=== PATIENT | female | born 1945 | race Caucasian/White ===

== ENCOUNTER 2019-11-11 06:24 | Day surgery (SDC) | payer MEDICARE ==
[2019-11-11] MEDS ORDERED: Sodium Chloride 0.9% 10 ML Syringe FLUSH PRN (07:00)
--- NOTE | 2019-11-11 10:48 | OR ---
DATE OF PROCEDURE: 11/11/2019 SURGEON: Greer Jade MD POSTOPERATIVE CARE: Postoperative care will be provided mainly at the [address] [place] [address] [facility] in conjunction with [facility]. PREOPERATIVE DIAGNOSIS: Cataract, right eye. POSTOPERATIVE DIAGNOSIS: Cataract, right eye. PROCEDURE: Phacoemulsification with intraocular lens placement, right eye. ANESTHESIA: Topical and intracameral. ESTIMATED BLOOD LOSS: Minimal. COMPLICATIONS: None. PATHOLOGY SPECIMENS: None. SURGICAL FINDINGS: None. INDICATION FOR PROCEDURE: The patient is a 73-year-old female with history of a visually significant cataract in the right eye, which interfered with activities of daily living. This consisted of a nuclear sclerosis cataract. Following careful discussion of the risks, benefits and alternatives to cataract extraction with intraocular lens placement including blindness and , the patient elected to proceed, and informed, written consent was obtained prior to the procedure. DESCRIPTION OF THE PROCEDURE: The patient was previously identified, and a dustin placed above the right eye. All sources, including the patient, indicated that the right eye was the correct eye. The patient was subsequently taken to the operating room where standard monitors were applied. The patient was then prepped and draped in the usual sterile fashion for ophthalmic surgery. Attention was first directed at the 12 o'clock position where a paracentesis port was fashioned. Shugar solution followed by Viscoat was instilled into the eye. Attention was then directed to the 8:30 position where a triplanar incision was made in a near-clear manner using a keratome. A continuous capsulorrhexis was then made using a combination of the cystotome and Utrata forceps. Hydrodissection was achieved using a balanced salt solution, and the lens rotated nicely. Phacoemulsification was then done using a modified [id number] technique without complication. Phaco time was 17.01 CDE. The remaining cortex was removed using the irrigation/aspiration handpiece. Provisc was then instilled into the eye. A Technis lens, model PCB00, at 22.0 diopters was then placed in the capsular bag using an [place] injector. The remaining viscoelastic was removed using the irrigation/aspiration forceps. All wounds were then checked and found to be watertight. The lid speculum and drapes were removed. Maxitrol ointment was placed in the patient's right eye, and the eye was shielded. The patient tolerated the procedure well. The patient was instructed to follow up tomorrow. All needle and sponge counts were correct at the end of the procedure. Greer Jade MD /[id number]
== END 2019-11-11 08:49 | disposition home or self-care (01) ==
LOC: JP.SDS 06:24
PROVIDERS: ATTEND Ophthalmology
DX: H25.11 Age-related nuclear cataract, right eye (principal)
CPT/HCPCS: V2632

== ENCOUNTER 2019-11-25 06:33 | Day surgery (SDC) | payer MEDICARE ==
[2019-11-25] MEDS ORDERED: Sodium Chloride 0.9% 10 ML Syringe FLUSH PRN (07:00)
--- NOTE | 2019-11-25 10:38 | OR ---
DATE OF PROCEDURE: 11/25/2019 SURGEON: Greer Jade MD POSTOPERATIVE CARE: Postoperative care will be provided mainly at the [address] [place] [address] [facility] in conjunction with [facility]. PREOPERATIVE DIAGNOSIS: Cataract, left eye. POSTOPERATIVE DIAGNOSIS: Cataract, left eye. PROCEDURE: Phacoemulsification with intraocular lens placement, left eye. ANESTHESIA: Topical and intracameral. ESTIMATED BLOOD LOSS: Minimal. COMPLICATIONS: None. PATHOLOGY SPECIMENS: None. SURGICAL FINDINGS: None. INDICATION FOR PROCEDURE: The patient is a 74-year-old female with history of a visually significant cataract in the left eye, which interfered with activities of daily living. This consisted of a nuclear sclerosis cataract. Following careful discussion of the risks, benefits and alternatives to cataract extraction with intraocular lens placement including blindness and , the patient elected to proceed, and informed, written consent was obtained prior to the procedure. DESCRIPTION OF THE PROCEDURE: The patient was previously identified, and a dustin placed above the left eye. All sources, including the patient, indicated that the left eye was the correct eye. The patient was subsequently taken to the operating room where standard monitors were applied. The patient was then prepped and draped in the usual sterile fashion for ophthalmic surgery. Attention was first directed at the 12 o'clock position where a paracentesis port was fashioned. Shugar solution followed by Viscoat was instilled into the eye. Attention was then directed to the 8:30 position where a triplanar incision was made in a near-clear manner using a keratome. A continuous capsulorrhexis was then made using a combination of the cystotome and Utrata forceps. Hydrodissection was achieved using a balanced salt solution, and the lens rotated nicely. Phacoemulsification was then done using a modified [id number]-[id number] technique without complication. Phaco time was 10.38 CDE. The remaining cortex was removed using the irrigation/aspiration handpiece. Provisc was then instilled into the eye. A Technis lens, model PCB00, at 22.5 diopters was then placed in the capsular bag using an [place] injector. The remaining viscoelastic was removed using the irrigation/aspiration forceps. All wounds were then checked and found to be watertight. The lid speculum and drapes were removed. Maxitrol ointment was placed in the patient's left eye, and the eye was shielded. The patient tolerated the procedure well. The patient was instructed to follow up tomorrow. All needle and sponge counts were correct at the end of the procedure. Greer Jade MD /[id number]
== END 2019-11-25 08:30 | disposition home or self-care (01) ==
LOC: JP.SDS 06:33
PROVIDERS: ATTEND Ophthalmology
DX: E11.36 Type 2 diabetes mellitus with diabetic cataract (principal); I10 Essential (primary) hypertension; E66.9 Obesity, unspecified; Z88.8 Allergy status to other drugs, medicaments and biological substances; Z68.33 Body mass index [BMI] 33.0-33.9, adult
CPT/HCPCS: V2632

== ENCOUNTER 2021-01-24 21:41 | Inpatient (IN) | payer MEDICARE ==
[2021-01-24] MEDS ORDERED: Sodium Chloride 0.9% 1,000 ML IV SCH (22:15)
[2021-01-24] MEDS ORDERED: Sodium Chloride 0.9% 10 ML Syringe FLUSH PRN (22:15)
[2021-01-24] MEDS ORDERED: Ondansetron 4 MG/2 ML SDV IVPUSH ONE (22:16)
--- NOTE | 2021-01-24 22:27 | EDM.PDOC ---
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 She states that has been functioning fine pain started around the ileostomy site early this morning has progressively gotten worse. Does feel nauseated no shortness of breath chest pain no fevers Abdomen Pain Score (Numeric/FACES): 6 - Related Data Allergies Allergy/AdvReac Type Severity Reaction Status Date / Time atorvastatin Allergy Muscle Verified 01/24/21 21:50 Aches meperidine [From Demerol] Allergy Hives Verified 01/24/21 21:50 Sqbxmvg-TVV-FpI Reductase Allergy Other Verified 01/24/21 21:50 Inhibitor [Iwyqtzg-Ing-Buj Reductase Inhibitor] Home Meds: Home Meds Aspirin [Halfprin] 81 mg PO DAILY 01/08/17 [History] Levothyroxine Sodium [Synthroid] 112 mcg PO DAILY 01/08/17 [History] Multivitamin [Flintstones] 2 each PO DAILY 01/08/17 [History] Potassium Citrate/Citric Acid [Cytra-K] 15 ml PO TID 01/08/17 [History] amLODIPine Besylate [Norvasc] 2.5 mg PO DAILY 01/08/17 [History] metFORMIN [Glucophage] 500 mg PO BID 01/08/17 [History] Bismuth Subsalicylate [Pepto Bismol] 262 mg PO ASDIRECTED PRN 11/08/19 [History] Cholecalciferol (Vitamin D3) [Vitamin D3] 2,000 units PO DAILY 11/08/19 [History] Tamsulosin [Tamsulosin 24 Hr] 0.4 mg PO DAILY 11/08/19 [History] allopurinoL [Zyloprim] 100 mg PO DAILY 11/08/19 [History] Oxybutynin [Oxybutynin ER] 5 mg PO DAILY 11/25/19 [History] Sulfamethoxazole/Trimethoprim [Sulfamethoxazole-Tmp Ds Tablet] 1 each PO A SDIRECTED 11/25/19 [History] Past Medical History HEENT History: Reports: Allergic Rhinitis, Impaired Vision Cardiovascular History: Reports: Hypertension Gastrointestinal History: Reports: Bowel Obstruction, Chronic Diarrhea, Colon Polyp, Other (See Below) Other Gastrointestinal History: Ulcerative colitis Genitourinary History: Reports: Renal Calculus FIRST DYER History: Reports: Musculoskeletal History: Reports: Neck Pain, Chronic, Osteoarthritis Endocrine/Metabolic History: Reports: Diabetes, Type II, Hypothyroidism, Obesity/BMI 30+ Oncologic (Cancer) History: Reports: Colon, Other (See Below) Other Oncologic History: Rectal Dermatologic History: Reports: Psoriasis, Other (See Below) Other Dermatologic History: Art Cell carcinoma - Infectious Disease History Infectious Disease History: Reports: Chicken Pox, Measles, Mumps - Past Surgical History HEENT Surgical History: Reports: Tonsillectomy Cardiovascular Surgical History: Reports: None GI Surgical History: Reports: Appendectomy, Colonoscopy, EGD, Other (See Below) Other GI Surgeries/Procedures: Colon resection - iliostomy Female Surgical History: Reports: Breast Biopsy, Kidney stone extraction, Other (See Below) Other Female Surgeries/Procedures: currently has kidney stent in place Endocrine Surgical History: Reports: Other (See Below) Other Endocrine Surgeries/Procedures: Radioactive thyroid treatment Musculoskeletal Surgical History: Reports: None Oncologic Surgical History: Reports: None Dermatological Surgical History: Reports: None Social & Family History - Family History Family Medical History: No Pertinent Family History - Caffeine Use Caffeine Use: Reports: None ED ROS GENERAL - Review of Systems Review Of Systems: See Below Constitutional: Reports: No Symptoms Respiratory: Reports: No Symptoms Cardiovascular: Reports: No Symptoms GI/Abdominal: Reports: Abdominal Pain, Nausea. Denies: Vomiting ED EXAM, GI/ABD - Physical Exam Exam: See Below Exam Limited By: No Limitations General Appearance: Alert, WD/WN, No Apparent Distress Respiratory/Chest: No Respiratory Distress, Lungs Clear, Normal Breath Sounds, No Accessory Muscle Use, Chest Non-Tender Cardiovascular: Regular Rate, Rhythm, No Murmur GI/Abdominal Exam: Soft, Tender (Tender just above the ileostomy site), Abnormal Bowel Sounds (Hyperactive) Course - Vital Signs Last Recorded V/S: Last Vital Signs Temp 97.8 F 01/25/21 06:27 Pulse 97 01/25/21 08:00 Resp 16 01/25/21 08:00 BP 153/75 H 01/25/21 08:00 Pulse Ox 96 01/25/21 08:00 - Orders/Labs/Meds Orders: Active Orders 24 hr Category Date Time Status Peripheral IV Care [RC] . DIRECTED Care 01/24/21 22:15 Active Chest 1V Frontal [CR] Stat Exams 01/25/21 00:05 Taken CBC WITH AUTO DIFF [HEME] Stat Lab 01/25/21 08:55 Ordered COMPREHENSIVE METABOLIC PN,CMP [CHEM] Stat Lab 01/25/21 08:55 Ordered LACTIC ACID [CHEM] Stat Lab 01/25/21 08:55 Ordered Iopamidol [Isovue-300 (61%)] Med 01/24/21 22:45 Active 100 ml IV . DIRECTED Sodium Chloride 0.9% [Normal Saline] 1,000 ml Med 01/24/21 22:15 Active IV ASDIRECTED Sodium Chloride 0.9% [Normal Saline] 1,000 ml Med 01/25/21 09:00 Ordered IV ASDIRECTED Sodium Chloride 0.9% [Normal Saline] 80 ml Med 01/24/21 22:45 Active IV ASDIRECTED Sodium Chloride 0.9% [Saline Flush] Med 01/24/21 22:15 Active 10 ml FLUSH ASDIRECTED PRN Nasogastric Orogastric Tube Insertion [OM.PC] Routine Oth 01/24/21 23:47 Ordered Peripheral IV Insertion Adult [OM.PC] Urgent Oth 01/24/21 22:15 Ordered Medication Orders Sodium Chloride (Normal Saline) 1,000 mls @ 250 mls/hr IV ASDIRECTED ALLYSON Last Admin: 01/24/21 22:26 Dose: 250 mls/hr Documented by: LORNE Sodium Chloride (Normal Saline) 80 mls @ 3 mls/sec IV ASDIRECTED ALLYSON Last Admin: 01/24/21 22:54 Dose: 3 mls/sec Documented by: [email or web address] Sodium Chloride (Normal Saline) 1,000 mls @ 125 mls/hr IV ASDIRECTED [facility] Iopamidol (Iopamidol 612 Mg/Ml 100 Ml Bottle) 100 ml IV . DIRECTED [facility] Last Admin: 01/24/21 22:54 Dose: 100 ml Documented by: MYKLALY Sodium Chloride (Sodium Chloride 0.9% 10 Ml Syringe) 10 ml FLUSH ASDIRECTED PRN PRN Reason: Keep Vein Open Last Admin: 01/24/21 22:54 Dose: 10 ml Documented by: [email or web address] Labs: Laboratory Tests 01/24/21 01/24/21 01/24/21 Range/Units 22:07 22:07 22:07 WBC 11.2 H (4.5-11.0) K/uL RBC 4.22 (3.30-5.50) M/uL Hgb 11.0 L (12.0-15.0) g/dL Hct 35.7 L (36.0-48.0) % MCV 85 (80-98) fL MCH 26 L (27-31) pg MCHC 31 L (32-36) % Plt Count 309 (150-400) K/uL Neut % (Auto) 81.6 H (36-66) % Lymph % (Auto) 11.7 L (24-44) % Finney % (Auto) 5.8 (2-6) % Eos % (Auto) 0.7 L (2-4) % Baso % (Auto) 0.2 (0-1) % Sodium 139 L (140-148) mmol/L Potassium 4.1 (3.6-5.2) mmol/L Chloride 102 (100-108) mmol/L Carbon Dioxide 26 (21-32) mmol/L Anion Gap 15.1 H (5.0-14.0) mmol/L BUN 21 H (7-18) mg/dL Creatinine 0.9 (0.6-1.0) mg/dL Est Cr Clr Drug Dosing 43.30 mL/min Estimated GFR (MDRD) > 60 (>60) Glucose 161 H (74-106) mg/dL Lactic Acid 3.0 H (0.4-2.0) mmol/L Calcium 10.0 (8.5-10.1) mg/dL Total Bilirubin 0.6 (0.2-1.0) mg/dL AST 18 (15-37) U/L ALT 26 (12-78) U/L Alkaline Phosphatase 87 (46-116) U/L Total Protein 7.5 (6.4-8.2) g/dL Albumin 4.0 (3.4-5.0) g/dL Globulin 3.5 (2.3-3.5) g/dL Albumin/Globulin Ratio 1.1 L (1.2-2.2) Lipase 65 L (73-393) U/L SARS CoV-2 RNA Rapid DAVE 01/24/21 Range/Units 23:56 WBC (4.5-11.0) K/uL RBC (3.30-5.50) M/uL Hgb (12.0-15.0) g/dL Hct (36.0-48.0) % MCV (80-98) fL MCH (27-31) pg MCHC (32-36) % Plt Count (150-400) K/uL Neut % (Auto) (36-66) % Lymph % (Auto) (24-44) % Finney % (Auto) (2-6) % Eos % (Auto) (2-4) % Baso % (Auto) (0-1) % Sodium (140-148) mmol/L Potassium (3.6-5.2) mmol/L Chloride (100-108) mmol/L Carbon Dioxide (21-32) mmol/L Anion Gap (5.0-14.0) mmol/L BUN (7-18) mg/dL Creatinine (0.6-1.0) mg/dL Est Cr Clr Drug Dosing mL/min Estimated GFR (MDRD) (>60) Glucose (74-106) mg/dL Lactic Acid (0.4-2.0) mmol/L Calcium (8.5-10.1) mg/dL Total Bilirubin (0.2-1.0) mg/dL AST (15-37) U/L ALT (12-78) U/L Alkaline Phosphatase (46-116) U/L Total Protein (6.4-8.2) g/dL Albumin (3.4-5.0) g/dL Globulin (2.3-3.5) g/dL Albumin/Globulin Ratio (1.2-2.2) Lipase (73-393) U/L SARS CoV-2 RNA Rapid DAVE Negative Meds: Medications Generic Name Dose Route Start Last Admin Trade Name Freq PRN Reason Stop Dose Admin Sodium Chloride 1,000 mls @ 250 mls/hr 01/24/21 22:15 01/24/21 22:26 Normal Saline IV 250 mls/hr ASDIRECTED ALLYSON Administration Sodium Chloride 80 mls @ 3 mls/sec 01/24/21 22:45 01/24/21 22:54 Normal Saline IV 3 mls/sec ASDIRECTED ALLYSON Administration Sodium Chloride 1,000 mls @ 125 mls/hr 01/25/21 09:00 Normal Saline IV ASDIRECTED [facility]ON Iopamidol 100 ml 01/24/21 22:45 01/24/21 22:54 Iopamidol 612 Mg/Ml 100 Ml Bottle IV 100 ml . DIRECTED ALLYSON Administration Sodium Chloride 10 ml 01/24/21 22:15 01/24/21 22:54 Sodium Chloride 0.9% 10 Ml Syringe FLUSH 10 ml ASDIRECTED PRN Administration Keep Vein Open Discontinued Medications Generic Name Dose Route Start Last Admin Trade Name Freq PRN Reason Stop Dose Admin Fentanyl 50 mcg 01/24/21 23:54 01/25/21 00:10 Fentanyl 100 Mcg/2 Ml Sdv IVPUSH 01/24/21 23:55 50 mcg ONETIME ONE Administration Lorazepam 0.5 mg 01/24/21 23:54 01/25/21 06:53 Lorazepam 2 Mg/Ml Sdv IVPUSH 01/24/21 23:55 Not Given ONETIME ONE Ondansetron HCl 4 mg 01/24/21 22:16 01/24/21 22:25 Ondansetron 4 Mg/2 Ml Sdv IVPUSH 01/24/21 22:17 4 mg ONETIME ONE Administration Departure - Departure Time of Disposition: 08:57 Disposition: Admitted As Inpatient 64 Condition: Fair Clinical Impression: Small bowel obstruction - Discharge Information Referrals: Gabriel Hardin MD [Primary Care Provider] - Forms: ED Department Discharge Sepsis Event Note (ED) - Evaluation Sepsis Screening Result: No Definite Risk - Focused Exam Vital Signs: Vital Signs Temp Pulse Resp BP Pulse Ox 01/25/21 08:00 97 16 153/75 H 96 01/25/21 06:27 97.8 F 100 16 133/57 L 96 01/24/21 23:58 93 16 153/81 H 99 01/24/21 23:17 92 16 133/85 97 01/24/21 21:49 96 18 172/83 H 99 - My Orders Last 24 Hours: My Active Orders 01/24/21 22:15 Peripheral IV Care [RC] . DIRECTED Sodium Chloride 0.9% [Normal Saline] 1,000 ml IV ASDIRECTED Sodium Chloride 0.9% [Saline Flush] 10 ml FLUSH ASDIRECTED PRN Peripheral IV Insertion Adult [OM.PC] Urgent 01/24/21 22:45 Iopamidol [Isovue-300 (61%)] 100 ml IV . DIRECTED Sodium Chloride 0.9% [Normal Saline] 80 ml IV ASDIRECTED 01/24/21 23:47 Nasogastric Orogastric Tube Insertion [OM.PC] Routine 01/25/21 00:05 Chest 1V Frontal [CR] Stat 01/25/21 08:55 CBC WITH AUTO DIFF [HEME] Stat COMPREHENSIVE METABOLIC PN,CMP [CHEM] Stat LACTIC ACID [CHEM] Stat 01/25/21 09:00 Sodium Chloride 0.9% [Normal Saline] 1,000 ml IV ASDIRECTED - Assessment/Plan Last 24 Hours: My Active Orders 01/24/21 22:15 Peripheral IV Care [RC] . DIRECTED Sodium Chloride 0.9% [Normal Saline] 1,000 ml IV ASDIRECTED Sodium Chloride 0.9% [Saline Flush] 10 ml FLUSH ASDIRECTED PRN Peripheral IV Insertion Adult [OM.PC] Urgent 01/24/21 22:45 Iopamidol [Isovue-300 (61%)] 100 ml IV . DIRECTED Sodium Chloride 0.9% [Normal Saline] 80 ml IV ASDIRECTED 01/24/21 23:47 Nasogastric Orogastric Tube Insertion [OM.PC] Routine 01/25/21 00:05 Chest 1V Frontal [CR] Stat 01/25/21 08:55 CBC WITH AUTO DIFF [HEME] Stat COMPREHENSIVE METABOLIC PN,CMP [CHEM] Stat LACTIC ACID [CHEM] Stat 01/25/21 09:00 Sodium Chloride 0.9% [Normal Saline] 1,000 ml IV ASDIRECTED Plan: assesment Small bowel obstruction Plan We did try transfer last night unfortunately we were unsuccessful due to bed shortage is in the area some bed openings have become available this afternoon call discussed case hospitalist on-call at 9 AM kindly agreed to come evaluate patient emergency department for admission.
[2021-01-24] MEDS ORDERED: Sodium Chloride 0.9% 80 ML IV SCH (22:45)
[2021-01-24] MEDS ORDERED: Iopamidol 612 MG/ML 100 ML Bottle IV SCH (22:45)
--- NOTE | 2021-01-24 23:43 | CRLCT ---
For Patients: As a result of the Century Cures Act, medical imaging exams and procedure reports are released immediately into your electronic medical record. You may view this report before your referring provider. If you have questions, please contact your health care provider. INDICATION: Pain around ileostomy site. TECHNIQUE: CT abdomen and pelvis acquired with 100 mL Isovue-300 contrast. COMPARISON: CT abdomen/pelvis dated 09/08/2019. FINDINGS: Lower chest: Bibasilar atelectasis. No focal consolidation. Liver: No suspicious focal hepatic lesion. Gallbladder and bile ducts: Unremarkable. Pancreas: Diffuse atrophy. Spleen: Unremarkable. Adrenal glands: Adreniform thickening of the bilateral adrenal glands. Kidneys: No hydronephrosis bilaterally. Asymmetric atrophy of the left kidney. Several subcentimeter nonobstructing calculi in the kidneys bilaterally, overall stone burden is increased in the right kidney since prior study. Too small to characterize hypodense bilateral renal lesions. Retroperitoneum: No lymphadenopathy. Bowel and mesentery: There appear to be postsurgical changes following total colectomy with blind ending rectal stump, and right lower quadrant end ileostomy. There is a large parastomal hernia, which results in small-bowel obstruction (transition point is at the neck of the hernia). Bladder: Unremarkable for degree of distension. Reproductive organs: Multiple calcified uterine fibroids. Pelvic lymph nodes: No lymphadenopathy. Vessels: Atherosclerotic calcifications. Abdominal wall: Parastomal hernia as above. Bones: Multilevel degenerative changes of the spine. No suspicious/aggressive focal osseous lesion. Grade 1 anterolisthesis of L4 on L5, unchanged. IMPRESSION: 1. 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 2. Numerous bilateral nonobstructing subcentimeter renal calculi. Overall right renal stone burden has increased since prior study. 3. Additional incidental findings as above. Please note that all CT scans at this facility use dose modulation, iterative reconstruction, and/or weight-based dosing when appropriate to reduce radiation dose to as low as reasonably achievable. Dictated by Sylvester Oneal MD @ 01/24/2021 11:42:16 PM (Electronically Signed)
[2021-01-24] MEDS ORDERED: fentaNYL 100 MCG/2 ML SDV IVPUSH ONE (23:54)
[2021-01-24] MEDS ORDERED: LORazepam 2 MG/ML SDV IVPUSH ONE (23:54)
[2021-01-25] MEDS ORDERED: Sodium Chloride 0.9% 1,000 ML IV SCH ×2 (09:00→14:29)
--- NOTE | 2021-01-25 09:33 | CR ---
CHEST: Portable 01/25/2021 at 12:35 AM CLINICAL HISTORY:NG tube placement COMPARISON:None FINDINGS: NG tube is been placed. Tip is in the fundus of the stomach. Side-port is at the GE junction The heart size, pulmonary vascularity and hilar structures are normal. No infiltrate effusion or pneumothorax is seen. IMPRESSION: No acute cardiopulmonary process. NG tube as above
--- NOTE | 2021-01-25 13:58 | PCM.HP.2 ---
H&P History of Present Illness - General Date of Service: 01/25/21 Admit Problem/Dx: Admission Diagnosis/Problem Admission Diagnosis/Problem Small bowel obstruction Source of Information: Patient, Family, Provider, RN Notes Reviewed History Limitations: Reports: No Limitations - History of Present Illness Initial Comments - Free Text/Narative: Ms. Rodriguez is a 75-year-old woman who was admitted through the emergency department with abdominal pain, nausea, and vomiting, secondary to small bowel obstruction. She does have a prior history of abdominal surgery, status post subtotal colectomy done for ulcerative colitis. She has an ileostomy which until yesterday had been functioning very well. During the day yesterday noted marked decrease in output into her ostomy bag with developing cramping abdominal pain, nausea, and vomiting. She presented to the emergency department in the evening, CT scan of the abdomen was obtained and showed evidence of a peristomal hernia with incarcerated small bowel. There were no beds available in the hospital so she was boarded in the emergency department overnight. NG tube was placed and she was relatively comfortable throughout the night. Just prior to admission she noted marked improvement in ostomy output and total resolution of symptoms. Abdomen Pain Score (Numeric/FACES): 6 - Related Data Allergies/Adverse Reactions: Allergies Allergy/AdvReac Type Severity Reaction Status Date / Time atorvastatin Allergy Muscle Verified 01/24/21 21:50 Aches meperidine [From Demerol] Allergy Hives Verified 01/24/21 21:50 Fxbgvyx-BXN-UyN Reductase Allergy Other Verified 01/24/21 21:50 Inhibitor [Euqdnai-Lsn-Vpx Reductase Inhibitor] Home Medications: Home Meds Aspirin [Halfprin] 81 mg PO DAILY 01/08/17 [History] Levothyroxine Sodium [Synthroid] 112 mcg PO DAILY 01/08/17 [History] Multivitamin [Flintstones] 2 each PO DAILY 01/08/17 [History] Potassium Citrate/Citric Acid [Cytra-K] 15 ml PO TID 01/08/17 [History] amLODIPine Besylate [Norvasc] 2.5 mg PO DAILY 01/08/17 [History] metFORMIN [Glucophage] 500 mg PO BID 01/08/17 [History] Bismuth Subsalicylate [Pepto Bismol] 262 mg PO ASDIRECTED PRN 11/08/19 [History] Cholecalciferol (Vitamin D3) [Vitamin D3] 2,000 units PO DAILY 11/08/19 [History] allopurinoL [Zyloprim] 100 mg PO DAILY 11/08/19 [History] Sulfamethoxazole/Trimethoprim [Sulfamethoxazole-Tmp Ds Tablet] 1 each PO ASDIRECTED 11/25/19 [History] Past Medical History HEENT History: Reports: Allergic Rhinitis, Impaired Vision Cardiovascular History: Reports: Hypertension Gastrointestinal History: Reports: Bowel Obstruction, Chronic Diarrhea, Colon Polyp, Other (See Below) Other Gastrointestinal History: Ulcerative colitis Genitourinary History: Reports: Renal Calculus [employer] History: Reports: Musculoskeletal History: Reports: Neck Pain, Chronic, Osteoarthritis Endocrine/Metabolic History: Reports: Diabetes, Type II, Hypothyroidism, Obesity /BMI 30+ Oncologic (Cancer) History: Reports: Colon, Other (See Below) Other Oncologic History: Rectal Dermatologic History: Reports: Psoriasis, Other (See Below) Other Dermatologic History: Art Cell carcinoma - Infectious Disease History Infectious Disease History: Reports: Chicken Pox, Measles, Mumps - Past Surgical History HEENT Surgical History: Reports: Tonsillectomy Cardiovascular Surgical History: Reports: None GI Surgical History: Reports: Appendectomy, Colonoscopy, EGD, Other (See Below) Other GI Surgeries/Procedures: Colon resection - iliostomy Female Surgical History: Reports: Breast Biopsy, Kidney stone extraction, Other (See Below) Other Female Surgeries/Procedures: currently has kidney stent in place Endocrine Surgical History: Reports: Other (See Below) Other Endocrine Surgeries/Procedures: Radioactive thyroid treatment Musculoskeletal Surgical History: Reports: None Oncologic Surgical History: Reports: None Dermatological Surgical History: Reports: None Social & Family History - Family History Family Medical History: No Pertinent Family History - Tobacco Use Tobacco Use Status *Q: Never Tobacco User - Caffeine Use Caffeine Use: Reports: Coffee - Recreational Drug Use Recreational Drug Use: No H&P Review of Systems - Review of Systems: Review Of Systems: See Below General: Reports: Malaise, Weakness, Fatigue. Denies: Fever, Chills HEENT: Reports: No Symptoms Pulmonary: Reports: No Symptoms Cardiovascular: Reports: No Symptoms Gastrointestinal: Reports: Abdominal Pain, Distension, Nausea, Vomiting. Denies: Difficulty Swallowing, Hematemesis, Hematochezia, Melena, Mucous in Stool Genitourinary: Reports: No Symptoms Musculoskeletal: Reports: No Symptoms Skin: Reports: No Symptoms Psychiatric: Reports: No Symptoms Neurological: Reports: No Symptoms Hematologic/Lymphatic: Reports: No Symptoms Immunologic: Reports: No Symptoms Exam - Exam Exam: See Below - Vital Signs Vital Signs: Last Vital Signs Temp 97.8 F 01/25/21 06:27 Pulse 89 01/25/21 12:05 Resp 16 01/25/21 12:05 BP 141/70 H 01/25/21 12:05 Pulse Ox 98 01/25/21 12:05 Weight: 180 lb - Exam Quality Assessment: DVT Prophylaxis General: Alert, Oriented, Cooperative HEENT: Conjunctiva Clear, Hearing Intact, Mucosa Moist & [place], Normal Nasal Septum, Posterior Pharynx Clear, Pupils Equal Neck: Supple, Trachea Midline, +2 Carotid Pulse wo Bruit Lungs: Clear to Auscultation, Normal Respiratory Effort Cardiovascular: Regular Rate, Regular Rhythm, Normal S1, Normal S2. No: Systolic Murmur, Diastolic Murmur GI/Abdominal Exam: Soft, Non-Tender, No Organomegaly, No Distention Back Exam: Normal Inspection, Full Range of Motion Extremities: Non-Tender, No Pedal Edema Skin: Warm, Dry, Intact Neurological: Cranial Nerves Intact, Strength Equal Bilateral, Normal Speech, Normal Tone, Sensation Intact. No: Focal Deficit Neuro Extensive - Mental Status: Alert, Oriented x3, Normal Mood/Affect, Normal Cognition, Memory Intact - Patient Data Lab Results Last 24 hrs: Laboratory Results - last 24 hr 01/24/21 01/24/21 01/24/21 Range/Units 22:07 22:07 22:07 WBC 11.2 H (4.5-11.0) K/uL RBC 4.22 (3.30-5.50) M/uL Hgb 11.0 L (12.0-15.0) g/dL Hct 35.7 L (36.0-48.0) % MCV 85 (80-98) fL MCH 26 L (27-31) pg MCHC 31 L (32-36) % Plt Count 309 (150-400) K/uL Neut % (Auto) 81.6 H (36-66) % Lymph % (Auto) 11.7 L (24-44) % Josephine % (Auto) 5.8 (2-6) % Eos % (Auto) 0.7 L (2-4) % Baso % (Auto) 0.2 (0-1) % Sodium 139 L (140-148) mmol/L Potassium 4.1 (3.6-5.2) mmol/L Chloride 102 (100-108) mmol/L Carbon Dioxide 26 (21-32) mmol/L Anion Gap 15.1 H (5.0-14.0) mmol/L BUN 21 H (7-18) mg/dL Creatinine 0.9 (0.6-1.0) mg/dL Est Cr Clr Drug Dosing 43.30 mL/min Estimated GFR (MDRD) > 60 (>60) Glucose 161 H (74-106) mg/dL Lactic Acid 3.0 H (0.4-2.0) mmol/L Calcium 10.0 (8.5-10.1) mg/dL Total Bilirubin 0.6 (0.2-1.0) mg/dL AST 18 (15-37) U/L ALT 26 (12-78) U/L Alkaline Phosphatase 87 (46-116) U/L Total Protein 7.5 (6.4-8.2) g/dL Albumin 4.0 (3.4-5.0) g/dL Globulin 3.5 (2.3-3.5) g/dL Albumin/Globulin Ratio 1.1 L (1.2-2.2) Lipase 65 L (73-393) U/L SARS CoV-2 RNA Rapid DAVE 01/24/21 01/25/21 01/25/21 Range/Units 23:56 09:05 09:05 WBC 9.8 (4.5-11.0) K/uL RBC 4.04 (3.30-5.50) M/uL Hgb 10.7 L (12.0-15.0) g/dL Hct 34.1 L (36.0-48.0) % MCV 84 (80-98) fL MCH 27 (27-31) pg MCHC 31 L (32-36) % Plt Count 295 (150-400) K/uL Neut % (Auto) 74.3 H (36-66) % Lymph % (Auto) 16.0 L (24-44) % Josephine % (Auto) 8.8 H (2-6) % Eos % (Auto) 0.7 L (2-4) % Baso % (Auto) 0.2 (0-1) % Sodium 140 (140-148) mmol/L Potassium 4.6 (3.6-5.2) mmol/L Chloride 104 (100-108) mmol/L Carbon Dioxide 29 (21-32) mmol/L Anion Gap 7.2 (5.0-14.0) mmol/L BUN 14 (7-18) mg/dL Creatinine 0.7 (0.6-1.0) mg/dL Est Cr Clr Drug Dosing 55.68 mL/min Estimated GFR (MDRD) > 60 (>60) Glucose 110 H (74-106) mg/dL Lactic Acid (0.4-2.0) mmol/L Calcium 9.7 (8.5-10.1) mg/dL Total Bilirubin 0.6 (0.2-1.0) mg/dL AST 19 (15-37) U/L ALT 25 (12-78) U/L Alkaline Phosphatase 80 (46-116) U/L Total Protein 6.8 (6.4-8.2) g/dL Albumin 3.5 (3.4-5.0) g/dL Globulin 3.3 (2.3-3.5) g/dL Albumin/Globulin Ratio 1.1 L (1.2-2.2) Lipase (73-393) U/L SARS CoV-2 RNA Rapid DAVE Negative 01/25/21 Range/Units 09:05 WBC (4.5-11.0) K/uL RBC (3.30-5.50) M/uL Hgb (12.0-15.0) g/dL Hct (36.0-48.0) % MCV (80-98) fL MCH (27-31) pg MCHC (32-36) % Plt Count (150-400) K/uL Neut % (Auto) (36-66) % Lymph % (Auto) (24-44) % Josephine % (Auto) (2-6) % Eos % (Auto) (2-4) % Baso % (Auto) (0-1) % Sodium (140-148) mmol/L Potassium (3.6-5.2) mmol/L Chloride (100-108) mmol/L Carbon Dioxide (21-32) mmol/L Anion Gap (5.0-14.0) mmol/L BUN (7-18) mg/dL Creatinine (0.6-1.0) mg/dL Est Cr Clr Drug Dosing mL/min Estimated GFR (MDRD) (>60) Glucose (74-106) mg/dL Lactic Acid 1.4 (0.4-2.0) mmol/L Calcium (8.5-10.1) mg/dL Total Bilirubin (0.2-1.0) mg/dL AST (15-37) U/L ALT (12-78) U/L Alkaline Phosphatase (46-116) U/L Total Protein (6.4-8.2) g/dL Albumin (3.4-5.0) g/dL Globulin (2.3-3.5) g/dL Albumin/Globulin Ratio (1.2-2.2) Lipase (73-393) U/L SARS CoV-2 RNA Rapid DAVE Result Diagrams: 01/25/21 09:05 01/25/21 09:05 Sepsis Event Note - Evaluation Sepsis Screening Result: No Definite Risk - Focused Exam Vital Signs: Vital Signs Temp Pulse Resp BP Pulse Ox 01/25/21 12:05 89 16 141/70 H 98 01/25/21 09:25 97 16 136/68 97 01/25/21 08:00 97 16 153/75 H 96 01/25/21 06:27 97.8 F 100 16 133/57 L 96 *Q Meaningful Use (ADM) - VTE Risk Assess *Q Each Risk Factor Represents 1 Point: Obesity ( BMI > 25 kg/m2) Total Score 1 Point Risk Factors: 1 Each Risk Factor Represents 2 Points: None Total Score 2 Point Risk Factors: 0 Each Risk Factor Represents 3 Points: Age 75 Years or Greater Total Score 3 Point Risk Factors: 3 Each Risk Factor Represents 5 Points: None Total Score 5 Point Risk Factors: 0 Venous Thromboembolism Risk Factor Score *Q: 4 Problem List Initiated/Reviewed/Updated: Yes Orders Last 24hrs: Active Orders 24 hr Category Date Time Status Patient Status Manage Transfer [TRANSFER] Routine ADT 01/25/21 13:44 Ordered Peripheral IV Care [RC] . DIRECTED Care 01/24/21 22:15 Active Iopamidol [Isovue-300 (61%)] Med 01/24/21 22:45 Active 100 ml IV . DIRECTED Sodium Chloride 0.9% [Normal Saline] 1,000 ml Med 01/24/21 22:15 Active IV ASDIRECTED Sodium Chloride 0.9% [Normal Saline] 1,000 ml Med 01/25/21 09:00 Active IV ASDIRECTED Sodium Chloride 0.9% [Normal Saline] 80 ml Med 01/24/21 22:45 Active IV ASDIRECTED Sodium Chloride 0.9% [Saline Flush] Med 01/24/21 22:15 Active 10 ml FLUSH ASDIRECTED PRN Nasogastric Orogastric Tube Insertion [OM.PC] Routine Oth 01/24/21 23:47 Ordered Peripheral IV Insertion Adult [OM.PC] Urgent Oth 01/24/21 22:15 Ordered Resuscitation Status Routine Resus Stat 01/25/21 13:50 Ordered Medication Orders Sodium Chloride (Normal Saline) 1,000 mls @ 250 mls/hr IV ASDIRECTED ALLYSON Last Admin: 01/24/21 22:26 Dose: 250 mls/hr Documented by: LORNE Sodium Chloride (Normal Saline) 80 mls @ 3 mls/sec IV ASDIRECTED ALLYSON Last Admin: 01/24/21 22:54 Dose: 3 mls/sec Documented by: FRANSISCA Sodium Chloride (Normal Saline) 1,000 mls @ 125 mls/hr IV ASDIRECTED ALLYSON Last Admin: 01/25/21 09:38 Dose: 125 mls/hr Documented by: LINA Iopamidol (Iopamidol 612 Mg/Ml 100 Ml Bottle) 100 ml IV . DIRECTED ALLYSON Last Admin: 01/24/21 22:54 Dose: 100 ml Documented by: FRANSISCA Sodium Chloride (Sodium Chloride 0.9% 10 Ml Syringe) 10 ml FLUSH ASDIRECTED PRN PRN Reason: Keep Vein Open Last Admin: 01/24/21 22:54 Dose: 10 ml Documented by: FRANSISCA Assessment/Plan Comment:: ASSESSMENT AND PLAN SMALL BOWEL OBSTRUCTION-incarcerated peristomal hernia noted on CT scan. Just prior to admission patient noted good output into her ostomy and resolution of s ymptoms. Likely that the obstruction has resolved spontaneously. -Remove NG tube -Clear liquid diet -Follow-up abdominal flatplate and upright in a.m. -Consult Dr. Lovell for surgical follow-up -Saline lock IV TYPE 2 DIABETES MELLITUS -Hold Metformin -4 times daily glucometers -Low-dose sliding scale Humalog HYPERTENSION -Continue outpatient medications HYPOTHYROIDISM -Continue usual outpatient dose of thyroid replacement MAINTENANCE ISSUES -DVT prophylaxis; SCUDs -GI prophylaxis; not indicated, continue outpatient PPI -Sofia catheter; not required -Nutrition; clear liquid diet -Nicotine dependence; not required CODE STATUS-FULL CODE ADMISSION STATUS-patient will be admitted to inpatient status, expect at least a 2 night hospital stay for evaluation and management of problems as outlined above. At the time of this admission I do not reasonably expected evaluation and management of this problem will require more than a 96 hour hospital stay. DISPOSITION-anticipate discharge to home after the hospital stay. PRIMARY CARE PROVIDER-Dr. Hardin - Mortality Measure Prognosis:: Good
[2021-01-25] MEDS ORDERED: 50% Dextrose in Water 50 ML Syringe IV PRN (14:29)
[2021-01-25] MEDS ORDERED: Sodium Chloride 0.9% 10 ML Syringe FLUSH PRN (14:29)
[2021-01-25] MEDS ORDERED: Ondansetron 4 MG/2 ML SDV IV PRN (14:29)
[2021-01-25] MEDS ORDERED: Glucose Gel 15 GM in 37.5 GM Tube PO PRN (14:29)
[2021-01-25] MEDS ORDERED: POTASSIUM CITRATE PO SCH (14:29)
[2021-01-25] MEDS ORDERED: CITRIC ACID PO SCH (14:29)
[2021-01-25] MEDS ORDERED: Albuterol 0.083% 2.5 MG/3 ML Neb Soln NEB PRN (14:29)
[2021-01-25] MEDS ORDERED: [UNRECOGNIZED DRUG - OTHER] PO SCH (14:29)
[2021-01-25] MEDS ORDERED: HYDROmorphone 0.5 MG/0.5 ML Syringe IVPUSH PRN (14:29)
[2021-01-25] MEDS: Insulin Lispro 100 Unit/ML 3 ML KwikPen SUBCUT SCH ×2 (18:51→21:33)
[2021-01-25] MEDS: Sodium Chloride 0.9% 1,000 ML IV SCH (18:52)
[2021-01-25] MEDS: Lactulose Soln 10 GM/15 ML 15 ML UD Cup PO SCH (20:26)
[2021-01-25] MEDS: Docusate Sodium 100 MG Cap PO SCH (20:27)
[2021-01-26] MEDS: Sodium Chloride 0.9% 1,000 ML IV SCH (04:43)
[2021-01-26] MEDS: Levothyroxine 112 MCG Tab PO SCH (07:01)
[2021-01-26] MEDS: Insulin Lispro 100 Unit/ML 3 ML KwikPen SUBCUT SCH ×4 (08:14→21:02)
[2021-01-26] MEDS: Lactulose Soln 10 GM/15 ML 15 ML UD Cup PO SCH (08:52)
[2021-01-26] MEDS: Docusate Sodium 100 MG Cap PO SCH (08:52)
[2021-01-26] MEDS: Magnesium Oxide 400 MG Tab PO SCH ×2 (08:53→21:02)
[2021-01-26] MEDS: Aspirin 81 MG Tab.EC PO SCH (08:53)
[2021-01-26] MEDS: amLODIPine 5 MG Tab PO SCH (08:54)
[2021-01-26] MEDS: Magnesium Sulfate/Water 2 GM in Premix Bag 1 BAG IV SCH ×2 (08:54→15:01)
[2021-01-26] MEDS ORDERED: AMLODIPINE BESYLATE 2.5 MG PO SCH (09:00)
[2021-01-26] MEDS ORDERED: Tamsulosin 0.4 MG Cap.ER PO SCH (09:00)
[2021-01-26] MEDS ORDERED: Oxybutynin 5 MG Tab PO SCH (09:00)
[2021-01-26] MEDS ORDERED: Non-Formulary Medication 1 Each (Oxybutynin [Oxybutynin Er] 5 MG Tab.Er) PO SCH (09:00)
[2021-01-26] MEDS ORDERED: Allopurinol 100 MG Tab PO SCH (09:00)
--- NOTE | 2021-01-26 09:39 | CR ---
Abdomen 2V AP Upright Decub CLINICAL HISTORY: Follow-up SBO FINDINGS: There is some air-filled mildly distended small bowel loops in the left abdomen. This is decreased compared to recent CT. No free air is seen. There are bilateral renal calculi. IMPRESSION: Improvement in small bowel distention Bilateral renal calculi
--- NOTE | 2021-01-26 13:41 | PCM.PN ---
- General Info Date of Service: 01/26/21 Subjective Update: Ms. Rodriguez has done well since admission with good output from her ostomy and tolerating ice chips as well as clear liquid diet. Abdominal x-ray from this morning shows improvement in small bowel distention. Abdominal pain with nausea vomiting have resolved. Functional Status: Reports: Tolerating Diet, Ambulating, Urinating - Review of Systems General: Reports: No Symptoms Pulmonary: Reports: No Symptoms Cardiovascular: Reports: No Symptoms Gastrointestinal: Reports: No Symptoms Genitourinary: Reports: No Symptoms - Patient Data Vitals - Most Recent: Last Vital Signs Temp 95.5 F L 01/26/21 11:00 Pulse 78 01/26/21 11:00 Resp 16 01/26/21 11:00 BP 138/65 01/26/21 11:00 Pulse Ox 100 01/26/21 11:00 Weight - Most Recent: 180 lb I&O - Last 24 Hours: Intake & Output 01/25/21 01/26/21 01/26/21 22:59 06:59 14:59 Intake Total 90 1476 1350 Output Total 150 650 Balance -60 826 1350 Lab Results Last 24 Hours: Laboratory Results - last 24 hr 01/25/21 01/25/21 01/25/21 Range/Units 14:46 17:45 21:02 WBC (4.5-11.0) K/uL RBC (3.30-5.50) M/uL Hgb (12.0-15.0) g/dL Hct (36.0-48.0) % MCV (80-98) fL MCH (27-31) pg MCHC (32-36) % Plt Count (150-400) K/uL Neut % (Auto) (36-66) % Lymph % (Auto) (24-44) % Norton % (Auto) (2-6) % Eos % (Auto) (2-4) % Baso % (Auto) (0-1) % Sodium (140-148) mmol/L Potassium (3.6-5.2) mmol/L Chloride (100-108) mmol/L Carbon Dioxide (21-32) mmol/L Anion Gap (5.0-14.0) mmol/L BUN (7-18) mg/dL Creatinine (0.6-1.0) mg/dL Est Cr Clr Drug Dosing mL/min Estimated GFR (MDRD) (>60) Glucose (74-106) mg/dL POC Glucose 100 83 80 (74-106) mg/dL Calcium (8.5-10.1) mg/dL Magnesium (1.8-2.4) mg/dL Total Bilirubin (0.2-1.0) mg/dL AST (15-37) U/L ALT (12-78) U/L Alkaline Phosphatase (46-116) U/L Total Protein (6.4-8.2) g/dL Albumin (3.4-5.0) g/dL Globulin (2.3-3.5) g/dL Albumin/Globulin Ratio (1.2-2.2) 01/26/21 01/26/21 01/26/21 Range/Units 05:55 05:55 07:31 WBC 6.8 (4.5-11.0) K/uL RBC 3.64 (3.30-5.50) M/uL Hgb 9.6 L (12.0-15.0) g/dL Hct 31.1 L (36.0-48.0) % MCV 85 (80-98) fL MCH 26 L (27-31) pg MCHC 31 L (32-36) % Plt Count 255 (150-400) K/uL Neut % (Auto) 68.4 H (36-66) % Lymph % (Auto) 17.1 L (24-44) % Norton % (Auto) 11.1 H (2-6) % Eos % (Auto) 3.1 (2-4) % Baso % (Auto) 0.3 (0-1) % Sodium 140 (140-148) mmol/L Potassium 3.7 (3.6-5.2) mmol/L Chloride 107 (100-108) mmol/L Carbon Dioxide 25 (21-32) mmol/L Anion Gap 7.8 (5.0-14.0) mmol/L BUN 12 (7-18) mg/dL Creatinine 0.7 (0.6-1.0) mg/dL Est Cr Clr Drug Dosing 55.68 mL/min Estimated GFR (MDRD) > 60 (>60) Glucose 98 (74-106) mg/dL POC Glucose 101 (74-106) mg/dL Calcium 8.5 (8.5-10.1) mg/dL Magnesium 1.6 L (1.8-2.4) mg/dL Total Bilirubin 0.6 (0.2-1.0) mg/dL AST 17 (15-37) U/L ALT 22 (12-78) U/L Alkaline Phosphatase 69 (46-116) U/L Total Protein 5.9 L (6.4-8.2) g/dL Albumin 3.1 L (3.4-5.0) g/dL Globulin 2.8 (2.3-3.5) g/dL Albumin/Globulin Ratio 1.1 L (1.2-2.2) 01/26/21 Range/Units 11:37 WBC (4.5-11.0) K/uL RBC (3.30-5.50) M/uL Hgb (12.0-15.0) g/dL Hct (36.0-48.0) % MCV (80-98) fL MCH (27-31) pg MCHC (32-36) % Plt Count (150-400) K/uL Neut % (Auto) (36-66) % Lymph % (Auto) (24-44) % Norton % (Auto) (2-6) % Eos % (Auto) (2-4) % Baso % (Auto) (0-1) % Sodium (140-148) mmol/L Potassium (3.6-5.2) mmol/L Chloride (100-108) mmol/L Carbon Dioxide (21-32) mmol/L Anion Gap (5.0-14.0) mmol/L BUN (7-18) mg/dL Creatinine (0.6-1.0) mg/dL Est Cr Clr Drug Dosing mL/min Estimated GFR (MDRD) (>60) Glucose (74-106) mg/dL POC Glucose 118 H (74-106) mg/dL Calcium (8.5-10.1) mg/dL Magnesium (1.8-2.4) mg/dL Total Bilirubin (0.2-1.0) mg/dL AST (15-37) U/L ALT (12-78) U/L Alkaline Phosphatase (46-116) U/L Total Protein (6.4-8.2) g/dL Albumin (3.4-5.0) g/dL Globulin (2.3-3.5) g/dL Albumin/Globulin Ratio (1.2-2.2) Med Orders - Current: Current Medications Albuterol (Albuterol 0.083% 2.5 Mg/3 Ml Neb Soln) 2.5 mg NEB Q4H PRN PRN Reason: Shortness Of Breath/wheezing Allopurinol (Allopurinol 100 Mg Tab) 100 mg PO QPM [facility] Amlodipine Besylate (Amlodipine 5 Mg Tab) 2.5 mg PO DAILY [facility] Last Admin: 01/26/21 08:54 Dose: 2.5 mg Documented by: Aspirin (Aspirin 81 Mg Tab.Ec) 81 mg PO DAILY [facility] Last Admin: 01/26/21 08:53 Dose: 81 mg Documented by: Dextrose (Glucose Gel 15 Gm In 37.5 Gm Tube) 15 gm PO ASDIRECTED PRN PRN Reason: Hypoglycemia Dextrose/Water (50% Dextrose In Water 50 Ml Syringe) 50 ml IV ASDIRECTED PRN PRN Reason: Hypoglycemia Hydromorphone HCl (Hydromorphone 0.5 Mg/0.5 Ml Syringe) 0.5 mg IVPUSH Q2H PRN PRN Reason: Pain Magnesium Sulfate 2 gm/ Premix 50 mls @ 25 mls/hr IV Q6H [facility] Stop: 01/26/21 16:59 Last Admin: 01/26/21 08:54 Dose: 25 mls/hr Documented by: Insulin Human Lispro (Insulin Lispro 100 Unit/Ml 3 Ml Kwikpen) 0 unit SUBCUT QIDACANDBED [facility]; Protocol Last Admin: 01/26/21 11:51 Dose: Not Given Documented by: Levothyroxine Sodium (Levothyroxine 112 Mcg Tab) 112 mcg PO ACBREAKFAST [facility] Last Admin: 01/26/21 07:01 Dose: 112 mcg Documented by: Magnesium Oxide (Magnesium Oxide 400 Mg Tab) 400 mg PO BID [facility] Last Admin: 01/26/21 08:53 Dose: 400 mg Documented by: Ondansetron HCl (Ondansetron 4 Mg/2 Ml Sdv) 4 mg IV Q4H PRN PRN Reason: Nausea/Vomiting Sodium Chloride (Sodium Chloride 0.9% 10 Ml Syringe) 10 ml FLUSH ASDIRECTED PRN PRN Reason: Keep Vein Open Discontinued Medications Docusate Sodium (Docusate Sodium 100 Mg Cap) 100 mg PO BID [facility] Last Admin: 01/26/21 08:52 Dose: Not Given Documented by: Fentanyl (Fentanyl 100 Mcg/2 Ml Sdv) 50 mcg IVPUSH ONETIME ONE Stop: 01/24/21 23:55 Last Admin: 01/25/21 00:10 Dose: 50 mcg Documented by: Sodium Chloride (Normal Saline) 1,000 mls @ 250 mls/hr IV ASDIRECTED [facility] Last Admin: 01/24/21 22:26 Dose: 250 mls/hr Documented by: Sodium Chloride (Normal Saline) 80 mls @ 3 mls/sec IV ASDIRECTED [facility] Last Admin: 01/24/21 22:54 Dose: 3 mls/sec Documented by: Sodium Chloride (Normal Saline) 1,000 mls @ 125 mls/hr IV ASDIRECTED [facility] Last Admin: 01/25/21 09:38 Dose: 125 mls/hr Documented by: Sodium Chloride (Normal Saline) 1,000 mls @ 125 mls/hr IV ASDIRECTED [facility] Sodium Chloride (Normal Saline) 1,000 mls @ 100 mls/hr IV ASDIRECTED [facility] Last Admin: 01/26/21 04:43 Dose: 100 mls/hr Documented by: Iopamidol (Iopamidol 612 Mg/Ml 100 Ml Bottle) 100 ml IV . DIRECTED [facility] Last Admin: 01/24/21 22:54 Dose: 100 ml Documented by: Lactulose (Lactulose Soln 10 Gm/15 Ml 15 Ml Ud Cup) 30 gm PO BID [facility] Last Admin: 01/26/21 08:52 Dose: Not Given Documented by: Lorazepam (Lorazepam 2 Mg/Ml Sdv) 0.5 mg IVPUSH ONETIME ONE Stop: 01/24/21 23:55 Last Admin: 01/25/21 06:53 Dose: Not Given Documented by: Ondansetron HCl (Ondansetron 4 Mg/2 Ml Sdv) 4 mg IVPUSH ONETIME ONE Stop: 01/24/21 22:17 Last Admin: 01/24/21 22:25 Dose: 4 mg Documented by: Oxybutynin Chloride (Oxybutynin 5 Mg Tab) 2.5 mg PO BID [facility] Last Admin: 01/26/21 08:52 Dose: Not Given Documented by: Sodium Chloride (Sodium Chloride 0.9% 10 Ml Syringe) 10 ml FLUSH ASDIRECTED PRN PRN Reason: Keep Vein Open Last Admin: 01/24/21 22:54 Dose: 10 ml Documented by: Tamsulosin HCl (Tamsulosin 0.4 Mg Cap.Er) 0.4 mg PO DAILY [facility] Last Admin: 01/26/21 08:52 Dose: Not Given Documented by: - Exam Quality Assessment: DVT Prophylaxis General: Alert, Oriented, Cooperative, No Acute Distress Lungs: Clear to Auscultation, Normal Respiratory Effort Cardiovascular: Regular Rate, Regular Rhythm, No Murmurs GI/Abdominal Exam: Soft, Non-Tender, No Organomegaly, No Distention Extremities: Non-Tender, No Pedal Edema - Patient Data Lab Results Last 24 hrs: Laboratory Results - last 24 hr 01/25/21 01/25/21 01/25/21 Range/Units 14:46 17:45 21:02 WBC (4.5-11.0) K/uL RBC (3.30-5.50) M/uL Hgb (12.0-15.0) g/dL Hct (36.0-48.0) % MCV (80-98) fL MCH (27-31) pg MCHC (32-36) % Plt Count (150-400) K/uL Neut % (Auto) (36-66) % Lymph % (Auto) (24-44) % Norton % (Auto) (2-6) % Eos % (Auto) (2-4) % Baso % (Auto) (0-1) % Sodium (140-148) mmol/L Potassium (3.6-5.2) mmol/L Chloride (100-108) mmol/L Carbon Dioxide (21-32) mmol/L Anion Gap (5.0-14.0) mmol/L BUN (7-18) mg/dL Creatinine (0.6-1.0) mg/dL Est Cr Clr Drug Dosing mL/min Estimated GFR (MDRD) (>60) Glucose (74-106) mg/dL POC Glucose 100 83 80 (74-106) mg/dL Calcium (8.5-10.1) mg/dL Magnesium (1.8-2.4) mg/dL Total Bilirubin (0.2-1.0) mg/dL AST (15-37) U/L ALT (12-78) U/L Alkaline Phosphatase (46-116) U/L Total Protein (6.4-8.2) g/dL Albumin (3.4-5.0) g/dL Globulin (2.3-3.5) g/dL Albumin/Globulin Ratio (1.2-2.2) 01/26/21 01/26/21 01/26/21 Range/Units 05:55 05:55 07:31 WBC 6.8 (4.5-11.0) K/uL RBC 3.64 (3.30-5.50) M/uL Hgb 9.6 L (12.0-15.0) g/dL Hct 31.1 L (36.0-48.0) % MCV 85 (80-98) fL MCH 26 L (27-31) pg MCHC 31 L (32-36) % Plt Count 255 (150-400) K/uL Neut % (Auto) 68.4 H (36-66) % Lymph % (Auto) 17.1 L (24-44) % Norton % (Auto) 11.1 H (2-6) % Eos % (Auto) 3.1 (2-4) % Baso % (Auto) 0.3 (0-1) % Sodium 140 (140-148) mmol/L Potassium 3.7 (3.6-5.2) mmol/L Chloride 107 (100-108) mmol/L Carbon Dioxide 25 (21-32) mmol/L Anion Gap 7.8 (5.0-14.0) mmol/L BUN 12 (7-18) mg/dL Creatinine 0.7 (0.6-1.0) mg/dL Est Cr Clr Drug Dosing 55.68 mL/min Estimated GFR (MDRD) > 60 (>60) Glucose 98 (74-106) mg/dL POC Glucose 101 (74-106) mg/dL Calcium 8.5 (8.5-10.1) mg/dL Magnesium 1.6 L (1.8-2.4) mg/dL Total Bilirubin 0.6 (0.2-1.0) mg/dL AST 17 (15-37) U/L ALT 22 (12-78) U/L Alkaline Phosphatase 69 (46-116) U/L Total Protein 5.9 L (6.4-8.2) g/dL Albumin 3.1 L (3.4-5.0) g/dL Globulin 2.8 (2.3-3.5) g/dL Albumin/Globulin Ratio 1.1 L (1.2-2.2) 01/26/21 Range/Units 11:37 WBC (4.5-11.0) K/uL RBC (3.30-5.50) M/uL Hgb (12.0-15.0) g/dL Hct (36.0-48.0) % MCV (80-98) fL MCH (27-31) pg MCHC (32-36) % Plt Count (150-400) K/uL Neut % (Auto) (36-66) % Lymph % (Auto) (24-44) % Norton % (Auto) (2-6) % Eos % (Auto) (2-4) % Baso % (Auto) (0-1) % Sodium (140-148) mmol/L Potassium (3.6-5.2) mmol/L Chloride (100-108) mmol/L Carbon Dioxide (21-32) mmol/L Anion Gap (5.0-14.0) mmol/L BUN (7-18) mg/dL Creatinine (0.6-1.0) mg/dL Est Cr Clr Drug Dosing mL/min Estimated GFR (MDRD) (>60) Glucose (74-106) mg/dL POC Glucose 118 H (74-106) mg/dL Calcium (8.5-10.1) mg/dL Magnesium (1.8-2.4) mg/dL Total Bilirubin (0.2-1.0) mg/dL AST (15-37) U/L ALT (12-78) U/L Alkaline Phosphatase (46-116) U/L Total Protein (6.4-8.2) g/dL Albumin (3.4-5.0) g/dL Globulin (2.3-3.5) g/dL Albumin/Globulin Ratio (1.2-2.2) Result Diagrams: 01/26/21 05:55 01/26/21 05:55 Sepsis Event Note - Evaluation Sepsis Screening Result: No Definite Risk - Focused Exam Vital Signs: Vital Signs Temp Temp Pulse Resp BP BP Pulse Ox 01/26/21 11:00 95.5 F L 78 16 138/65 100 01/26/21 08:54 133/74 01/26/21 07:00 96.6 F L 88 16 145/61 H 98 01/26/21 03:00 97.7 F 72 18 123/64 96 - Problem List Review Problem List Initiated/Reviewed/Updated: Yes - My Orders Last 24 Hours: My Active Orders 01/25/21 13:50 Resuscitation Status Routine 01/25/21 14:29 Albuterol [Proventil Neb Soln] 2.5 mg NEB Q4H PRN Dextrose 50% in Water 50 ml IV ASDIRECTED PRN Dextrose [Glutose 15] 15 gm PO ASDIRECTED PRN HYDROmorphone [Dilaudid] 0.5 mg IVPUSH Q2H PRN Ondansetron [Zofran] 4 mg IV Q4H PRN Sodium Chloride 0.9% [Saline Flush] 10 ml FLUSH ASDIRECTED PRN 01/25/21 14:29 Patient Status [ADT] Routine Ambulate [RC] QID Antiembolic Devices [RC] .Routine Diabetes Education [RC] Click to Edit Height and Weight [RC] 0500 Intake and Output [RC] QSHIFT Notify Provider Consults [RC] ASDIRECTED Notify Provider Vital Signs [RC] ASDIRECTED Notify Provider [RC] PRN Oxygen Therapy [RC] PRN Peripheral IV Care [RC] Q12H RT Aerosol Therapy [RC] ASDIRECTED Up to Chair [RC] QID VTE/DVT Education [RC] Per Unit Routine Vital Signs [RC] Q4H Consult to Physician [CONS] Routine Peripheral IV Insertion Adult [OM.PC] Routine Sequential Compression Device [OM.PC] Per Unit Routine VTE Pharmacological Contraindications [AST] Per Unit Routine 01/25/21 17:00 Insulin Lispro [HumaLOG] See Protocol SUBCUT QIDACANDBED 01/25/21 20:29 GLUCOSE POC LAB TO COLLECT JPM [POC] Q6H 01/26/21 07:30 Levothyroxine 112 mcg PO ACBREAKFAST 01/26/21 09:00 Aspirin [Halfprin] 81 mg PO DAILY Magnesium Oxide 400 mg PO BID Magnesium Sulfate/Water [Magnesium Sulfate in Water 2 GM/50 ML] 2 gm Premix Bag 1 bag IV Q6H amLODIPine [Norvasc] 2.5 mg PO DAILY 01/26/21 11:12 Convert IV to Saline Lock [OM.PC] Routine 01/26/21 Lunch Full Liquid Diet [DIET] 01/26/21 12:19 Convert IV to Saline Lock [OM.PC] Routine 01/26/21 16:30 GLUCOSE POC LAB TO COLLECT JPM [POC] QIDACANDBED 01/26/21 17:00 allopurinoL [Zyloprim] 100 mg PO QPM 01/26/21 21:00 GLUCOSE POC LAB TO COLLECT JPM [POC] QIDACANDBED 01/27/21 05:00 Abdomen 2V AP Upright Decub [CR] Timed BASIC METABOLIC PANEL,BMP [CHEM] Timed CBC WITH AUTO DIFF [HEME] Timed 01/27/21 07:30 GLUCOSE POC LAB TO COLLECT JPM [POC] QIDACANDBED 01/27/21 11:30 GLUCOSE POC LAB TO COLLECT JPM [POC] QIDACANDBED 01/27/21 16:30 GLUCOSE POC LAB TO COLLECT JPM [POC] QIDACANDBED 01/27/21 21:00 GLUCOSE POC LAB TO COLLECT JPM [POC] QIDACANDBED 01/28/21 07:30 GLUCOSE POC LAB TO COLLECT JPM [POC] QIDACANDBED 01/28/21 11:30 GLUCOSE POC LAB TO COLLECT JPM [POC] QIDACANDBED 01/28/21 16:30 GLUCOSE POC LAB TO COLLECT JPM [POC] QIDACANDBED 01/28/21 21:00 GLUCOSE POC LAB TO COLLECT JPM [POC] QIDACANDBED 01/29/21 07:30 GLUCOSE POC LAB TO COLLECT JPM [POC] QIDACANDBED 01/29/21 11:30 GLUCOSE POC LAB TO COLLECT JPM [POC] QIDACANDBED 01/29/21 16:30 GLUCOSE POC LAB TO COLLECT JPM [POC] QIDACANDBED 01/29/21 21:00 GLUCOSE POC LAB TO COLLECT JPM [POC] QIDACANDBED 01/30/21 07:30 GLUCOSE POC LAB TO COLLECT JPM [POC] QIDACANDBED 01/30/21 11:30 GLUCOSE POC LAB TO COLLECT JPM [POC] QIDACANDBED 01/30/21 16:30 GLUCOSE POC LAB TO COLLECT JPM [POC] QIDACANDBED - Plan Plan:: ASSESSMENT AND PLAN SMALL BOWEL OBSTRUCTION-incarcerated peristomal hernia noted on CT scan. She has done well since admission, tolerating clear liquids. Abdominal pain with nausea and vomiting has resolved. -Full liquid diet -Follow-up abdominal flatplate and upright in a.m. -Surgical follow-up per Dr. Lovell -Saline lock IV TYPE 2 DIABETES MELLITUS -Hold Metformin -4 times daily glucometers -Low-dose sliding scale Humalog HYPERTENSION -Continue outpatient medications HYPOTHYROIDISM -Continue usual outpatient dose of thyroid replacement MAINTENANCE ISSUES -DVT prophylaxis; SCUDs -GI prophylaxis; not indicated, continue outpatient PPI -Sofia catheter; not required -Nutrition; full liquid diet -Nicotine dependence; not required CODE STATUS-FULL CODE ADMISSION STATUS-patient will be admitted to inpatient status, expect at least a 2 night hospital stay for evaluation and management of problems as outlined above. At the time of this admission I do not reasonably expected evaluation and management of this problem will require more than a 96 hour hospital stay. DISPOSITION-anticipate discharge to home after the hospital stay. PRIMARY CARE PROVIDER-Dr. Hardin
[2021-01-26] MEDS: Allopurinol 100 MG Tab PO SCH (17:12)
[2021-01-27] MEDS: Insulin Lispro 100 Unit/ML 3 ML KwikPen SUBCUT SCH ×4 (08:02→21:31)
[2021-01-27] MEDS: Levothyroxine 112 MCG Tab PO SCH (08:04)
[2021-01-27] MEDS: Aspirin 81 MG Tab.EC PO SCH (08:08)
[2021-01-27] MEDS: amLODIPine 5 MG Tab PO SCH (08:08)
[2021-01-27] MEDS: Magnesium Oxide 400 MG Tab PO SCH ×2 (08:08→21:31)
[2021-01-27] MEDS: Acetaminophen 325 MG Tab PO PRN ×3 (10:48→21:31)
--- NOTE | 2021-01-27 13:19 | PCM.PN ---
- General Info Date of Service: 01/27/21 Subjective Update: Ms. Rodriguez has remained stable since yesterday with good ostomy output. Currently denies abdominal pain or any symptoms of nausea. She has tolerated a full liquid diet without significant difficulty. She has been seen and evaluated this morning by Dr. Lovell who plans to continue full liquid diet 1 additional day. Functional Status: Reports: Tolerating Diet, Ambulating, Urinating - Review of Systems General: Reports: No Symptoms Pulmonary: Reports: No Symptoms Cardiovascular: Reports: No Symptoms Gastrointestinal: Reports: No Symptoms Genitourinary: Reports: No Symptoms - Patient Data Vitals - Most Recent: Last Vital Signs Temp 95.9 F L 01/27/21 10:49 Pulse 84 01/27/21 10:49 Resp 16 01/27/21 10:49 BP 130/80 01/27/21 10:49 Pulse Ox 97 01/27/21 10:49 Weight - Most Recent: 178 lb 6.4 oz I&O - Last 24 Hours: Intake & Output 01/26/21 01/27/21 01/27/21 22:59 06:59 14:59 Intake Total 2028 500 1110 Balance 2028 500 1110 Lab Results Last 24 Hours: Laboratory Results - last 24 hr 01/26/21 01/26/21 01/27/21 Range/Units 16:27 20:55 05:40 WBC 6.7 (4.5-11.0) K/uL RBC 3.64 (3.30-5.50) M/uL Hgb 9.5 L (12.0-15.0) g/dL Hct 31.0 L (36.0-48.0) % MCV 85 (80-98) fL MCH 26 L (27-31) pg MCHC 31 L (32-36) % Plt Count 263 (150-400) K/uL Neut % (Auto) 63.5 (36-66) % Lymph % (Auto) 21.7 L (24-44) % [place] % (Auto) 10.2 H (2-6) % Eos % (Auto) 4.3 H (2-4) % Baso % (Auto) 0.3 (0-1) % Sodium (140-148) mmol/L Potassium (3.6-5.2) mmol/L Chloride (100-108) mmol/L Carbon Dioxide (21-32) mmol/L Anion Gap (5.0-14.0) mmol/L BUN (7-18) mg/dL Creatinine (0.6-1.0) mg/dL Est Cr Clr Drug Dosing mL/min Estimated GFR (MDRD) (>60) Glucose (74-106) mg/dL POC Glucose 110 H 109 H (74-106) mg/dL Calcium (8.5-10.1) mg/dL 01/27/21 01/27/21 01/27/21 Range/Units 05:40 07:24 11:27 WBC (4.5-11.0) K/uL RBC (3.30-5.50) M/uL Hgb (12.0-15.0) g/dL Hct (36.0-48.0) % MCV (80-98) fL MCH (27-31) pg MCHC (32-36) % Plt Count (150-400) K/uL Neut % (Auto) (36-66) % Lymph % (Auto) (24-44) % [place] % (Auto) (2-6) % Eos % (Auto) (2-4) % Baso % (Auto) (0-1) % Sodium 139 L (140-148) mmol/L Potassium 3.7 (3.6-5.2) mmol/L Chloride 105 (100-108) mmol/L Carbon Dioxide 26 (21-32) mmol/L Anion Gap 11.7 (5.0-14.0) mmol/L BUN 8 (7-18) mg/dL Creatinine 0.7 (0.6-1.0) mg/dL Est Cr Clr Drug Dosing 55.68 mL/min Estimated GFR (MDRD) > 60 (>60) Glucose 102 (74-106) mg/dL POC Glucose 104 128 H (74-106) mg/dL Calcium 8.6 (8.5-10.1) mg/dL Med Orders - Current: Current Medications Acetaminophen (Acetaminophen 325 Mg Tab) 650 mg PO Q4H PRN PRN Reason: Pain (mild 1-3) Last Admin: 01/27/21 10:48 Dose: 650 mg Documented by: Albuterol (Albuterol 0.083% 2.5 Mg/3 Ml Neb Soln) 2.5 mg NEB Q4H PRN PRN Reason: Shortness Of Breath/wheezing Allopurinol (Allopurinol 100 Mg Tab) 100 mg PO QPM [facility] Last Admin: 01/26/21 17:12 Dose: 100 mg Documented by: Amlodipine Besylate (Amlodipine 5 Mg Tab) 2.5 mg PO DAILY [facility] Last Admin: 01/27/21 08:08 Dose: 2.5 mg Documented by: Aspirin (Aspirin 81 Mg Tab.Ec) 81 mg PO DAILY [facility] Last Admin: 01/27/21 08:08 Dose: 81 mg Documented by: Dextrose (Glucose Gel 15 Gm In 37.5 Gm Tube) 15 gm PO ASDIRECTED PRN PRN Reason: Hypoglycemia Dextrose/Water (50% Dextrose In Water 50 Ml Syringe) 50 ml IV ASDIRECTED PRN PRN Reason: Hypoglycemia Hydromorphone HCl (Hydromorphone 0.5 Mg/0.5 Ml Syringe) 0.5 mg IVPUSH Q2H PRN PRN Reason: Pain Insulin Human Lispro (Insulin Lispro 100 Unit/Ml 3 Ml Kwikpen) 0 unit SUBCUT QIDACANDBED [facility]; Protocol Last Admin: 01/27/21 11:31 Dose: Not Given Documented by: Levothyroxine Sodium (Levothyroxine 112 Mcg Tab) 112 mcg PO ACBREAKFAST [facility] Last Admin: 01/27/21 08:04 Dose: 112 mcg Documented by: Magnesium Oxide (Magnesium Oxide 400 Mg Tab) 400 mg PO BID [facility] Last Admin: 01/27/21 08:08 Dose: 400 mg Documented by: Ondansetron HCl (Ondansetron 4 Mg/2 Ml Sdv) 4 mg IV Q4H PRN PRN Reason: Nausea/Vomiting Sodium Chloride (Sodium Chloride 0.9% 10 Ml Syringe) 10 ml FLUSH ASDIRECTED PRN PRN Reason: Keep Vein Open Discontinued Medications Docusate Sodium (Docusate Sodium 100 Mg Cap) 100 mg PO BID [facility] Last Admin: 01/26/21 08:52 Dose: Not Given Documented by: Fentanyl (Fentanyl 100 Mcg/2 Ml Sdv) 50 mcg IVPUSH ONETIME ONE Stop: 01/24/21 23:55 Last Admin: 01/25/21 00:10 Dose: 50 mcg Documented by: Sodium Chloride (Normal Saline) 1,000 mls @ 250 mls/hr IV ASDIRECTED [facility] Last Admin: 01/24/21 22:26 Dose: 250 mls/hr Documented by: Sodium Chloride (Normal Saline) 80 mls @ 3 mls/sec IV ASDIRECTED [facility] Last Admin: 01/24/21 22:54 Dose: 3 mls/sec Documented by: Sodium Chloride (Normal Saline) 1,000 mls @ 125 mls/hr IV ASDIRECTED [facility] Last Admin: 01/25/21 09:38 Dose: 125 mls/hr Documented by: Sodium Chloride (Normal Saline) 1,000 mls @ 125 mls/hr IV ASDIRECTED [place] Sodium Chloride (Normal Saline) 1,000 mls @ 100 mls/hr IV ASDIRECTED [facility] Last Admin: 01/26/21 04:43 Dose: 100 mls/hr Documented by: Magnesium Sulfate 2 gm/ Premix 50 mls @ 25 mls/hr IV Q6H [facility] Stop: 01/26/21 16:59 Last Admin: 01/26/21 15:01 Dose: 25 mls/hr Documented by: Iopamidol (Iopamidol 612 Mg/Ml 100 Ml Bottle) 100 ml IV . DIRECTED [facility] Last Admin: 01/24/21 22:54 Dose: 100 ml Documented by: Lactulose (Lactulose Soln 10 Gm/15 Ml 15 Ml Ud Cup) 30 gm PO BID [facility] Last Admin: 01/26/21 08:52 Dose: Not Given Documented by: Lorazepam (Lorazepam 2 Mg/Ml Sdv) 0.5 mg IVPUSH ONETIME ONE Stop: 01/24/21 23:55 Last Admin: 01/25/21 06:53 Dose: Not Given Documented by: Ondansetron HCl (Ondansetron 4 Mg/2 Ml Sdv) 4 mg IVPUSH ONETIME ONE Stop: 01/24/21 22:17 Last Admin: 01/24/21 22:25 Dose: 4 mg Documented by: Oxybutynin Chloride (Oxybutynin 5 Mg Tab) 2.5 mg PO BID [facility] Last Admin: 01/26/21 08:52 Dose: Not Given Documented by: Sodium Chloride (Sodium Chloride 0.9% 10 Ml Syringe) 10 ml FLUSH ASDIRECTED PRN PRN Reason: Keep Vein Open Last Admin: 01/24/21 22:54 Dose: 10 ml Documented by: Tamsulosin HCl (Tamsulosin 0.4 Mg Cap.Er) 0.4 mg PO DAILY [facility] Last Admin: 01/26/21 08:52 Dose: Not Given Documented by: - Exam Quality Assessment: DVT Prophylaxis General: Alert, Oriented, Cooperative, No Acute Distress Lungs: Clear to Auscultation, Normal Respiratory Effort Cardiovascular: Regular Rate, Regular Rhythm, No Murmurs GI/Abdominal Exam: Soft, Non-Tender, No Organomegaly, No Distention Extremities: Non-Tender, No Pedal Edema - Patient Data Lab Results Last 24 hrs: Laboratory Results - last 24 hr 01/26/21 01/26/21 01/27/21 Range/Units 16:27 20:55 05:40 WBC 6.7 (4.5-11.0) K/uL RBC 3.64 (3.30-5.50) M/uL Hgb 9.5 L (12.0-15.0) g/dL Hct 31.0 L (36.0-48.0) % MCV 85 (80-98) fL MCH 26 L (27-31) pg MCHC 31 L (32-36) % Plt Count 263 (150-400) K/uL Neut % (Auto) 63.5 (36-66) % Lymph % (Auto) 21.7 L (24-44) % [place] % (Auto) 10.2 H (2-6) % Eos % (Auto) 4.3 H (2-4) % Baso % (Auto) 0.3 (0-1) % Sodium (140-148) mmol/L Potassium (3.6-5.2) mmol/L Chloride (100-108) mmol/L Carbon Dioxide (21-32) mmol/L Anion Gap (5.0-14.0) mmol/L BUN (7-18) mg/dL Creatinine (0.6-1.0) mg/dL Est Cr Clr Drug Dosing mL/min Estimated GFR (MDRD) (>60) Glucose (74-106) mg/dL POC Glucose 110 H 109 H (74-106) mg/dL Calcium (8.5-10.1) mg/dL 01/27/21 01/27/21 01/27/21 Range/Units 05:40 07:24 11:27 WBC (4.5-11.0) K/uL RBC (3.30-5.50) M/uL Hgb (12.0-15.0) g/dL Hct (36.0-48.0) % MCV (80-98) fL MCH (27-31) pg MCHC (32-36) % Plt Count (150-400) K/uL Neut % (Auto) (36-66) % Lymph % (Auto) (24-44) % [place] % (Auto) (2-6) % Eos % (Auto) (2-4) % Baso % (Auto) (0-1) % Sodium 139 L (140-148) mmol/L Potassium 3.7 (3.6-5.2) mmol/L Chloride 105 (100-108) mmol/L Carbon Dioxide 26 (21-32) mmol/L Anion Gap 11.7 (5.0-14.0) mmol/L BUN 8 (7-18) mg/dL Creatinine 0.7 (0.6-1.0) mg/dL Est Cr Clr Drug Dosing 55.68 mL/min Estimated GFR (MDRD) > 60 (>60) Glucose 102 (74-106) mg/dL POC Glucose 104 128 H (74-106) mg/dL Calcium 8.6 (8.5-10.1) mg/dL Result Diagrams: 01/27/21 05:40 01/27/21 05:40 Sepsis Event Note - Evaluation Sepsis Screening Result: No Definite Risk - Focused Exam Vital Signs: Vital Signs Temp Pulse Resp BP BP Pulse Ox 01/27/21 10:49 95.9 F L 84 16 130/80 97 01/27/21 08:08 142/80 H 01/27/21 07:00 97 F 94 18 142/80 H 99 01/27/21 02:50 97.7 F 83 16 157/70 H 97 - Problem List Review Problem List Initiated/Reviewed/Updated: Yes - My Orders Last 24 Hours: My Active Orders 01/26/21 12:19 Convert IV to Saline Lock [OM.PC] Routine 01/26/21 17:00 allopurinoL [Zyloprim] 100 mg PO QPM 01/27/21 05:00 Abdomen 2V AP Upright Decub [CR] Timed 01/27/21 10:22 Acetaminophen [TylenoL] 650 mg PO Q4H PRN 01/27/21 16:30 GLUCOSE POC LAB TO COLLECT JPM [POC] QIDACANDBED 01/27/21 21:00 GLUCOSE POC LAB TO COLLECT JPM [POC] QIDACANDBED 01/28/21 05:00 Abdomen 2V AP Upright Decub [CR] Timed 01/28/21 07:30 GLUCOSE POC LAB TO COLLECT JPM [POC] QIDACANDBED 01/28/21 11:30 GLUCOSE POC LAB TO COLLECT JPM [POC] QIDACANDBED 01/28/21 16:30 GLUCOSE POC LAB TO COLLECT JPM [POC] QIDACANDBED 01/28/21 21:00 GLUCOSE POC LAB TO COLLECT JPM [POC] QIDACANDBED 01/29/21 07:30 GLUCOSE POC LAB TO COLLECT JPM [POC] QIDACANDBED 01/29/21 11:30 GLUCOSE POC LAB TO COLLECT JPM [POC] QIDACANDBED 01/29/21 16:30 GLUCOSE POC LAB TO COLLECT JPM [POC] QIDACANDBED 01/29/21 21:00 GLUCOSE POC LAB TO COLLECT JPM [POC] QIDACANDBED 01/30/21 07:30 GLUCOSE POC LAB TO COLLECT JPM [POC] QIDACANDBED 01/30/21 11:30 GLUCOSE POC LAB TO COLLECT JPM [POC] QIDACANDBED 01/30/21 16:30 GLUCOSE POC LAB TO COLLECT JPM [POC] QIDACANDBED - Plan Plan:: ASSESSMENT AND PLAN SMALL BOWEL OBSTRUCTION-incarcerated peristomal hernia noted on CT scan. She has done well since admission, tolerating full liquids. Abdominal pain with nausea and vomiting has resolved. -Full liquid diet -Follow-up abdominal flatplate and upright in a.m. -Surgical follow-up per Dr. Lovell -Saline lock IV TYPE 2 DIABETES MELLITUS -Hold Metformin -4 times daily glucometers -Low-dose sliding scale Humalog HYPERTENSION -Continue outpatient medications HYPOTHYROIDISM -Continue usual outpatient dose of thyroid replacement MAINTENANCE ISSUES -DVT prophylaxis; SCUDs -GI prophylaxis; not indicated, continue outpatient PPI -Sofia catheter; not required -Nutrition; full liquid diet -Nicotine dependence; not required CODE STATUS-FULL CODE ADMISSION STATUS-patient will be admitted to inpatient status, expect at least a 2 night hospital stay for evaluation and management of problems as outlined above. At the time of this admission I do not reasonably expected evaluation and management of this problem will require more than a 96 hour hospital stay. DISPOSITION-anticipate discharge to home after the hospital stay. PRIMARY CARE PROVIDER-Dr. Hardin
[2021-01-27] MEDS: Allopurinol 100 MG Tab PO SCH (17:23)
[2021-01-28] MEDS: Levothyroxine 112 MCG Tab PO SCH (07:42)
[2021-01-28] MEDS: Insulin Lispro 100 Unit/ML 3 ML KwikPen SUBCUT SCH (07:42)
--- NOTE | 2021-01-28 08:34 | CONS ---
DATE OF SERVICE: 01/26/2021 REFERRING PHYSICIAN: CONSULTING PHYSICIAN: Han Lovell MD REASON FOR CONSULTATION: Evaluation of ostomy function. HISTORY OF PRESENT ILLNESS: This is a 75-year-old female who was admitted to the hospital via the emergency room. The patient stayed in the emergency room as a border due to the lack of available hospital beds. The patient has a complex abdominal history, includes a subtotal colectomy for ulcerative colitis. The patient had an ileostomy created approximately 6 years ago. She underwent a CT scan which showed a parastomal hernia. On exam in the emergency room, the patient is having ostomy function. PAST MEDICAL HISTORY: As above, hypertension, chronic diarrhea, ulcerative colitis, neck pain, osteoarthritis, type 2 diabetes, psoriasis, [place] cell carcinoma, kidney stones, thyroid issues. SOCIAL HISTORY: She is not a smoker. FAMILY HISTORY: Noncontributory. REVIEW OF SYSTEMS: GENERAL: Appropriate for condition. HEENT: Radioactive treatment of her thyroid. PULMONARY: No shortness of breath. CARDIOVASCULAR: No chest pain. GASTROINTESTINAL: As above. GENITOURINARY: History of kidney stones. MUSCULOSKELETAL: No symptoms. SKIN: No symptoms. PSYCHIATRIC: No reported anxiety. The remainder of review of systems is reviewed and is negative. PHYSICAL EXAMINATION: VITAL SIGNS: Temperature 97.8, blood pressure 133/57, pulse 100, respirations 16, 96% on room air. GENERAL: The patient is resting comfortably. HEENT: Pupils are equal. NECK: Supple. LUNGS: Clear. CARDIOVASCULAR: Regular rhythm and rate. ABDOMEN: Nontender, nondistended. No rebound. No guarding. Ostomy shows stool noted. LABORATORY RESULTS: Show a normal white blood cell count. Essentially normal basic metabolic panel. IMAGING DATA: I did review the CT scan which shows large parastomal hernia. ASSESSMENT AND PLAN: The patient will be admitted. Originally, the urgent surgical intervention was entertained. However, the patient has no pain and her ostomy is functioning well, she does not desire surgery at this time and would like to discuss this with her physician, her original surgeon. This seems reasonable as she does not appear to be in any stress at all and she has ostomy function. We will admit her and work on advancing her diet, remove her NG tube, and see if we can regain function. Han Lovell MD /[id number]
[2021-01-28] MEDS: amLODIPine 5 MG Tab PO SCH (08:56)
[2021-01-28] MEDS: Aspirin 81 MG Tab.EC PO SCH (08:56)
[2021-01-28] MEDS: Magnesium Oxide 400 MG Tab PO SCH (08:56)
[2021-01-28] MEDS: Acetaminophen 325 MG Tab PO PRN (08:56)
--- NOTE | 2021-01-28 11:25 | PN ---
DATE OF SERVICE: 01/28/2021 SUBJECTIVE: The patient is doing well today. Pain is 0/10. No nausea, vomiting, shortness of breath, or chest pain. Ostomy output is good. ASSESSMENT: Ostomy dysfunction. PLAN: The patient will be discharged today. She is doing quite well. Her pain is well controlled. No nausea, vomiting, shortness of breath, or chest pain. Ostomy is functioning great. She will follow up with Surgery in 7 to 14 days to discuss definitive treatment of her hernia. Han Lovell MD /[id number]
--- NOTE | 2021-01-28 11:25 | PN ---
DATE OF SERVICE: 01/27/2021 SUBJECTIVE: The patient continues to improve. She is tolerating liquid diet. No nausea, vomiting, shortness of breath, or chest pain. Ostomy continues to improve its function daily. OBJECTIVE: VITAL SIGNS: Stable. She is afebrile per nursing report. CARDIOVASCULAR: Regular rhythm and rate. RESPIRATORY: Lungs clear to auscultation bilaterally. ASSESSMENT: Status post partial small-bowel obstruction. PLAN: Keep her on full liquids today. Consider discharge tomorrow. The patient will need definitive treatment of the ostomy. She requests that we perform this after the holidays, which seems reasonable as the patient is doing well. However, we will also monitor her with respect to functionality. The patient will probably need a laparoscopic parastomal hernia repair, which is quite a complicated procedure, but we will schedule that in the future date. Han Lovell MD /[id number]
--- NOTE | 2021-01-28 11:34 | DISCH ---
DISCHARGE DIAGNOSIS: Resolution of small-bowel obstruction due to parastomal hernia. SUMMARY OF HOSPITAL COURSE: Pleasant 75-year-old female who is admitted to the hospitalist service due to a nonfunctioning ostomy. The patient was boarded originally in the emergency room and when surgical consultation was achieved, the patient had ostomy function. Her NG tube was removed. Her diet was advanced. The patient had excellent ostomy output close to her normal function. During this hospitalization, she had no pain. No nausea, vomiting, shortness of breath, or chest pain. She will follow up with Surgery in 7 to 14 days. Diet will be full liquid diet x24 more hours, then soft diet x3 days, then advance diet as tolerated. The patient was instructed that if she does develop any recurrence of these symptoms, she is to present back to the emergency room where she will undergo immediate emergent repair of her parastomal hernia. /[id number]
--- NOTE | 2021-01-29 09:23 | CR ---
Abdomen 2V AP Upright Decub CLINICAL HISTORY: SBO follow-up FINDINGS: No free air is seen. Small intestinal gas pattern is nonacute. There are bilateral renal calculi. IMPRESSION: Nonacute intestinal gas pattern Bilateral renal calculi seen on prior study
--- NOTE | 2021-01-29 09:54 | CR ---
Abdomen 2V AP Upright Decub CLINICAL HISTORY: Follow-up SBO FINDINGS: No free air is identified. Small intestinal configuration is nonacute. There are a few air-filled bowel loops in the left lower quadrant. There are no renal calcifications IMPRESSION: Nonacute intestinal gas pattern Renal calcifications
== END 2021-01-28 11:15 | disposition home or self-care (01) | DRG 395 ==
LOC: JP.ED 21:41 → JP.MS 01-25 13:44
PROVIDERS: ADMIT Hospitalist; ATTEND Hospitalist
DX: K56.609 Unspecified intestinal obstruction, unspecified as to partial versus complete obstruction (principal); K43.3 Parastomal hernia with obstruction, without gangrene; H54.7 Unspecified visual loss; I10 Essential (primary) hypertension; K52.9 Noninfective gastroenteritis and colitis, unspecified; J30.9 Allergic rhinitis, unspecified; M54.2 Cervicalgia; G89.29 Other chronic pain; M19.90 Unspecified osteoarthritis, unspecified site; E11.9 Type 2 diabetes mellitus without complications; Z85.048 Personal history of other malignant neoplasm of rectum, rectosigmoid junction, and anus; E03.9 Hypothyroidism, unspecified; E66.9 Obesity, unspecified; Z20.822 Contact with and (suspected) exposure to COVID-19; Z85.038 Personal history of other malignant neoplasm of large intestine; Z86.19 Personal history of other infectious and parasitic diseases; Z79.82 Long term (current) use of aspirin; Z79.899 Other long term (current) drug therapy; Z88.5 Allergy status to narcotic agent; Z79.890 Hormone replacement therapy; Z88.8 Allergy status to other drugs, medicaments and biological substances; Z79.84 Long term (current) use of oral hypoglycemic drugs; Z87.442 Personal history of urinary calculi; Z90.89 Acquired absence of other organs; Z90.49 Acquired absence of other specified parts of digestive tract; Z93.2 Ileostomy status
CPT/HCPCS: 36415 ×2; 43752; 71045 ×2; 74177; 80053 ×2; 83605 ×2; 83690; 85025 ×2; 96374; 96375; 99285; J2405; J3010; J7030 ×2; Q9967; U0002; 74021; 74021-26; 80048; 82947; 83735; A9270-GY; J3475

== ENCOUNTER 2021-03-08 02:20 | Inpatient (IN) | payer MEDICARE ==
[2021-03-08] MEDS ORDERED: Lidocaine 1% with EPINEPHrine 1:100,000 50 ML MDV ONE (07:08)
[2021-03-08] MEDS ORDERED: Bupivacaine 0.5% 50 ML MDV ONE (07:08)
[2021-03-08] MEDS ORDERED: Rocuronium 50 MG/5 ML Vial ONE (07:29)
[2021-03-08] MEDS ORDERED: Succinylcholine 200 MG/10 ML MDV ONE (07:29)
[2021-03-08] MEDS ORDERED: Neostigmine Methylsulfate 1 MG/ML 5 ML Syringe ONE (07:29)
[2021-03-08] MEDS ORDERED: Glycopyrrolate 0.2 MG/ML 5 ML MDV ONE (07:29)
[2021-03-08] MEDS ORDERED: fentaNYL 250 MCG/5 ML SDV ONE (07:29)
[2021-03-08] MEDS ORDERED: Ondansetron 4 MG/2 ML SDV ONE (07:29)
[2021-03-08] MEDS ORDERED: Propofol 200 MG/20 ML SDV ONE (07:29)
[2021-03-08] MEDS ORDERED: Dexamethasone 4 MG/ML SDV ONE (07:29)
[2021-03-08] MEDS: Sodium Chloride 0.9% 1,000 ML IV SCH ×2 (08:48→19:26)
[2021-03-08] MEDS ORDERED: ceFAZolin 2 GM in Premix Bag 1 BAG IV ONE (09:30)
[2021-03-08] MEDS ORDERED: metroNIDAZOLE/Normal Saline 500 MG in Premix Bag 1 BAG IV ONE (09:30)
[2021-03-08] MEDS ORDERED: Ropivacaine 38 ML, dexAMETHasone 8 MG, EPINEPHrine 0.4 MG, Sodium Chloride 0.9% 39.6 ML NERVRT SCH ×4 (09:45)
[2021-03-08] MEDS ORDERED: fentaNYL 100 MCG/2 ML SDV IVPUSH PRN (10:08)
[2021-03-08] MEDS ORDERED: Benzocaine/Cetylpyridinium/Menthol Lozenge MUCMEM PRN (10:08)
[2021-03-08] MEDS ORDERED: diphenhydrAMINE 50 MG/ML SDV IVPUSH PRN (10:08)
[2021-03-08] MEDS ORDERED: Docusate Sodium 100 MG Cap PO PRN (10:08)
[2021-03-08] MEDS ORDERED: Lactated Ringers 1,000 ML ONE (10:55)
[2021-03-08] MEDS ORDERED: fentaNYL 100 MCG/2 ML SDV IVPUSH ONE (12:14)
[2021-03-08] MEDS: Acetaminophen/HYDROcodone 325-10 MG Tab PO PRN ×2 (13:22→21:49)
[2021-03-08] MEDS: metFORMIN 500 MG Tab PO SCH (17:19)
[2021-03-09] MEDS: Sodium Chloride 0.9% 1,000 ML IV SCH (08:21)
[2021-03-09] MEDS: metFORMIN 500 MG Tab PO SCH ×2 (08:23→17:04)
[2021-03-09] MEDS ORDERED: Enoxaparin 30 MG/0.3 ML Syringe SUBCUT SCH ×2 (09:00)
[2021-03-09] MEDS: amLODIPine 5 MG Tab PO SCH (09:59)
[2021-03-09] MEDS: Enoxaparin 40 MG/0.4 ML Syringe SUBCUT SCH (09:59)
[2021-03-09] MEDS: Levothyroxine 100 MCG Tab PO SCH (09:59)
[2021-03-09] MEDS: Allopurinol 100 MG Tab PO SCH (10:00)
[2021-03-09] MEDS: Aspirin 81 MG Tab.EC PO SCH (10:00)
[2021-03-09] MEDS: Acetaminophen 325 MG Tab PO PRN (21:14)
[2021-03-10] MEDS: Levothyroxine 100 MCG Tab PO SCH (08:28)
[2021-03-10] MEDS: metFORMIN 500 MG Tab PO SCH (08:28)
[2021-03-10] MEDS: Aspirin 81 MG Tab.EC PO SCH (08:28)
[2021-03-10] MEDS: amLODIPine 5 MG Tab PO SCH (08:28)
[2021-03-10] MEDS: Enoxaparin 40 MG/0.4 ML Syringe SUBCUT SCH (08:31)
[2021-03-10] MEDS: Allopurinol 100 MG Tab PO SCH (08:32)
[2021-03-10] MEDS: Acetaminophen 325 MG Tab PO PRN (13:09)
== END 2021-03-10 14:25 | disposition home or self-care (01) | DRG 355 ==
LOC: JP.SDS 07:35 → JP.MS 10:09 → EDSTATUS 16:15
PROVIDERS: ADMIT Surgery; ATTEND Surgery
PROC: 0WUF4JZ Supplement Abdominal Wall with Synthetic Substitute, Percutaneous Endoscopic Approach (ICD-10-PCS; principal; 2021-03-08)
DX: K43.3 Parastomal hernia with obstruction, without gangrene (principal); E11.9 Type 2 diabetes mellitus without complications; I10 Essential (primary) hypertension; E03.9 Hypothyroidism, unspecified; Z79.899 Other long term (current) drug therapy; Z85.048 Personal history of other malignant neoplasm of rectum, rectosigmoid junction, and anus; Z79.84 Long term (current) use of oral hypoglycemic drugs
CPT/HCPCS: 36415; 80048; 82947; 85025; 85027; 86850; 86900; 86901; 86920; 86922; A9270-GY; C1713; C1765; C1781; J0171; J0330; J0690; J1100; J1650; J2405; J2704; J2710; J2795; J3010; J3490; J7030; J7120

== ENCOUNTER 2021-07-20 01:06 | Emergency (ER) | payer MEDICARE ==
[2021-07-20] MEDS ORDERED: HYDROmorphone 1 MG/ML Syringe IM ONE (01:45)
[2021-07-20] MEDS ORDERED: Ondansetron 4 MG Tab.DIS PO ONE (03:22)
== END 2021-07-20 03:33 | disposition home or self-care (01) ==
LOC: JP.ED 01:06
DX: M48.061 Spinal stenosis, lumbar region without neurogenic claudication (principal); M51.16 Intervertebral disc disorders with radiculopathy, lumbar region; M16.0 Bilateral primary osteoarthritis of hip; I10 Essential (primary) hypertension; E03.9 Hypothyroidism, unspecified; E11.9 Type 2 diabetes mellitus without complications; E66.9 Obesity, unspecified; Z68.33 Body mass index [BMI] 33.0-33.9, adult; Z79.899 Other long term (current) drug therapy; Z79.82 Long term (current) use of aspirin; Z79.84 Long term (current) use of oral hypoglycemic drugs; Z88.8 Allergy status to other drugs, medicaments and biological substances; Z90.49 Acquired absence of other specified parts of digestive tract; Z88.6 Allergy status to analgesic agent
CPT/HCPCS: 36415; 72100; 72100-26; 73502-26-LT; 73502-LT; 73562-26-LT; 73562-LT; 80053; 81001; 85025; 96372; 99283; 99283-25; J1170; Q0162

== ENCOUNTER 2022-11-07 09:33 | Emergency (ER) | payer MEDICARE ==
[2022-11-07] MEDS ORDERED: Sodium Chloride 0.9% 10 ML Syringe FLUSH PRN (10:31)
[2022-11-07] MEDS ORDERED: Sodium Chloride 0.9% 10 ML Syringe FLUSH ONE (10:45)
[2022-11-07] MEDS ORDERED: Iopamidol 612 MG/ML 100 ML Bottle IV SCH (10:45)
[2022-11-07] MEDS ORDERED: Sodium Chloride 0.9% 50 ML IV SCH (10:45)
[2022-11-07 10:50] LABS: BASOPHILS ABSOLUTE AUTO 0.03 K/uL (0.00-0.10); BASOPHILS PERCENT AUTO 0.5 % (0.1-1.3); EOSINOPHILS ABSOLUTE AUTO 0.05 K/uL (0.00-0.40); EOSINOPHILS PERCENT AUTO 0.8 % (0.0-5.4); HEMOGLOBIN 11.9 g/dL (11.2-15.5); IMMATURE GRAN PERCENT AUTO 0.2 % (0.0-0.7); LYMPHOCYTES ABSOLUTE AUTO 0.83 K/uL (0.8-3.3); LYMPHOCYTES PERCENT AUTO 12.9 % (11.4-47.7); MEAN CORPUSCULAR HEMOGLOBIN 29.2 pg (31.6-35.5); MEAN CORPUSCULAR HGB CONC 33.1 g/dL (31.6-35.5); MEAN CORPUSCULAR VOLUME 88.5 fL (81.4-99.0); MONOCYTES ABSOLUTE AUTO 0.59 K/uL (0.20-0.90); MONOCYTES PERCENT AUTO 9.2 % (3.3-12.6); NEUTROPHILS PERCENT AUTO 76.4 % (40.0-78.1); PLATELET COUNT,PLT 171 K/uL (130-375); RED BLOOD CELL COUNT 4.07 M/uL (3.77-5.24); WHITE BLOOD CELL COUNT,WBC 6.4 K/uL (3.2-11.0)
[2022-11-07 10:56] LABS: IMMATURE GRAN ABSOLUTE AUTO 0.01 K/uL (0.00-0.23)
[2022-11-07 11:09] LABS: INR 1.2; PROTHROMBIN TIME 12.1 sec (9.2-10.6); PTT,PARTIAL THROMBOPLSTIN TIME 27.2 sec (21.8-27.3)
[2022-11-07 11:10] LABS: A/G RATIO 0.9 (1.2-2.2); ALANINE AMINOTRANSFERASE,ALT 115 U/L (12-78); ALBUMIN 3.1 g/dL (3.4-5.0); ALKALINE PHOSPHATASE 277 U/L (46-116); BILIRUBIN TOTAL 9.8 mg/dL (0.2-1.0); BLOOD UREA NITROGEN,BUN 18 mg/dL (7-18); C-REACTIVE PROTEIN 3.56 mg/dL (0.0-0.3); CALCIUM 9.3 mg/dL (8.5-10.1); CARBON DIOXIDE,CO2 22 mmol/L (21-32); CHLORIDE,CL 102 mmol/L (100-108); CREATININE 0.8 mg/dL (0.6-1.0); EST CRCL DRUG DOSING (CG) 43.73 mL/min; ESTIMATED GFR 75 mL/min (>60); GLUCOSE RANDOM 109 mg/dL (74-106); POTASSIUM,K 4.5 mmol/L (3.6-5.2); SODIUM,NA 134 mmol/L (140-148)
[2022-11-07 11:14] LABS: ANION GAP 14.5 mmol/L (5.0-14.0)
[2022-11-07 11:18] LABS: PROTEIN TOTAL,TP 6.7 g/dL (6.4-8.2)
[2022-11-07 11:20] LABS: ASPARTATE AMNIOTRANSFERASE,AST 104 U/L (15-37)
== END 2022-11-07 19:09 | disposition home or self-care (01) ==
LOC: JP.ED 09:33
DX: R74.01 Elevation of levels of liver transaminase levels (principal); R16.0 Hepatomegaly, not elsewhere classified; E66.9 Obesity, unspecified; K83.1 Obstruction of bile duct; R63.0 Anorexia; K94.10 Enterostomy complication, unspecified; E11.9 Type 2 diabetes mellitus without complications; Z88.8 Allergy status to other drugs, medicaments and biological substances; Z79.82 Long term (current) use of aspirin; Z79.84 Long term (current) use of oral hypoglycemic drugs
CPT/HCPCS: 36415; 74177; 76705; 80053; 82248; 83690; 85025; 85610; 85730; 86140; 86850; 86900; 86901; 99284; J3490; Q9967; 99285

== ENCOUNTER 2022-11-10 09:05 | Emergency (ER) | payer MEDICARE ==
[2022-11-10 10:07] LABS: BASOPHILS ABSOLUTE AUTO 0.04 K/uL (0.00-0.10); BASOPHILS PERCENT AUTO 0.5 % (0.1-1.3); EOSINOPHILS ABSOLUTE AUTO 0.09 K/uL (0.00-0.40); EOSINOPHILS PERCENT AUTO 1.1 % (0.0-5.4); HEMATOCRIT 36.1 % (34.3-46.0); HEMOGLOBIN 12.2 g/dL (11.2-15.5); IMMATURE GRAN ABSOLUTE AUTO 0.03 K/uL (0.00-0.23); IMMATURE GRAN PERCENT AUTO 0.4 % (0.0-0.7); LYMPHOCYTES PERCENT AUTO 9.9 % (11.4-47.7); MEAN CORPUSCULAR HEMOGLOBIN 29.6 pg (31.6-35.5); MEAN CORPUSCULAR HGB CONC 33.8 g/dL (31.6-35.5); MEAN CORPUSCULAR VOLUME 87.6 fL (81.4-99.0); MONOCYTES ABSOLUTE AUTO 0.76 K/uL (0.20-0.90); MONOCYTES PERCENT AUTO 9.4 % (3.3-12.6); NEUTROPHILS ABSOLUTE AUTO 6.37 K/uL (1.0-7.6); NEUTROPHILS PERCENT AUTO 78.7 % (40.0-78.1); PLATELET COUNT,PLT 208 K/uL (130-375); RED BLOOD CELL COUNT 4.12 M/uL (3.77-5.24); WHITE BLOOD CELL COUNT,WBC 8.1 K/uL (3.2-11.0)
[2022-11-10 10:23] LABS: INR 1.3; PROTHROMBIN TIME 12.7 sec (9.2-10.6)
[2022-11-10 10:27] LABS: A/G RATIO 0.9 (1.2-2.2); ALBUMIN 3.3 g/dL (3.4-5.0); BILIRUBIN DIRECT 11.48 mg/dL (0.0-0.2); BILIRUBIN INDIRECT 3.42; BILIRUBIN TOTAL 14.9 mg/dL (0.2-1.0); PROTEIN TOTAL,TP 6.8 g/dL (6.4-8.2)
== END 2022-11-10 10:55 | disposition home or self-care (01) ==
LOC: JP.ED 09:05
DX: R16.0 Hepatomegaly, not elsewhere classified (principal); R74.01 Elevation of levels of liver transaminase levels; R63.0 Anorexia; R04.0 Epistaxis; K83.1 Obstruction of bile duct; E66.9 Obesity, unspecified; E11.9 Type 2 diabetes mellitus without complications; M19.90 Unspecified osteoarthritis, unspecified site; I10 Essential (primary) hypertension; Z88.8 Allergy status to other drugs, medicaments and biological substances
CPT/HCPCS: 36415; 80076; 85025; 85610; 99283